=== PATIENT | female | born 1950 | race Caucasian/White ===

== ENCOUNTER 2019-10-08 13:58 | Emergency (ER) | payer MEDICARE, OTHER, SELFPAY ==
[2019-10-08 14:32] VITALS: BP 156/112; PULSE 71; RESP 18; TEMP 36.4; O2SAT 100; BMI 34.0
== END 2019-10-08 18:06 | disposition home or self-care (01) ==
LOC: ER 14:12
PROVIDERS: Emergency Provider Emergency Medicine; Family Provider Nurse Practitioner
DX: Z53.21 Procedure and treatment not carried out due to patient leaving prior to being seen by health care provider (principal)
CPT/HCPCS: 99281

== ENCOUNTER 2020-08-22 13:07 | Emergency (ER) | payer MEDICARE, OTHER, SELFPAY ==
[2020-08-22] VITALS (8 sets, daily range): BP systolic 109–132; BP diastolic 58–82; PULSE 64–73; RESP 15–18; TEMP 36.9; O2SAT 96–98; BMI 26.6
--- NOTE | 2020-08-22 13:21 | XR_ITS ---
WS: [id number] Exam: XR chest 1V portable [id number] Date/Time of Exam: 08/22/2020 1:37 PM Reason For Exam: chest pain Comparison 04/24/2014. The lungs are clear. Normal cardiomediastinal structures for technique. Bony elements are intact. No pleural effusions. XR/XR chest 1V portable [id number] IMPRESSION: 1. No acute cardiopulmonary finding.
--- NOTE | 2020-08-22 13:22 | ECG_ITS ---
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 Measurements Intervals [place] Rate: 66 P: 54 VT: 156 QRS: 30 QRSD: 84 T: 30 QT: 456 QTc: 481 Interpretive Statements SINUS RHYTHM No previous ECG available for comparison Electronically Signed On 08-22-2020 18:26:34 RETREAD TECHNICIAN by Chinyere Hughes M.D. [id number] f
--- NOTE | 2020-08-22 13:26 | ED_ITS ---
HPI - Chest Pain General: Chief Complaint: Chest Pain Stated Complaint: CHEST PAIN, SOB Time Seen by Provider: 08/22/20 13:13 Source: patient, family (Daughter) and EMS Mode of arrival: EMS Limitations: no limitations History of Present Illness: HPI narrative: Patient has been complaining of dizziness and lightheadedness for about 2 weeks. She says sometimes the room spins and sometimes she just feels lightheaded. He got much worse in the last 2 days and was associated with chest pain at the time. Dizziness is worse on rising and standing. Chest pain is left-sided and radiates to her neck and jaw on the left. No nausea or vomiting. No diaphoresis. Her daughter thinks that she may be too aggressive with dieting as the patient has been attempting to lose weight. She has gone from 215 pounds to 165 pounds in about a year. MD complaint: chest pain and chest heaviness Pertinent past history: coronary artery disease Onset (ago): day(s) (2) Timing of current episode: episodic Prior episodes: Yes Onset: during rest Pain location: left chest Pain radiation: neck and jaw/teeth Severity: moderate Quality: heaviness Relieving factors: nothing Exacerbating factors: nothing Associated symptoms: Deny abdominal pain, diaphoresis, dyspnea, fever(s), leg edema, nausea, palpitations, sense of impending doom, syncope or vomiting Treatment prior to arrival: aspirin and nitroglycerin Review of Systems General: Reports: 10 or more systems reviewed and unremarkable except in HPI and below Const: Denies: fever(s) or diaphoresis Eyes: Denies: change in vision or blurry vision ENMT: Denies: throat pain, enlarged tonsils, odynophagia, hoarseness, mouth pain or swelling of lips/tongue Card: Denies: palpitations or syncope Resp: Denies: dyspnea GI: Denies: abdominal pain, nausea or vomiting : Denies: flank pain, difficulty voiding, dysuria, urinary frequency, urinary urgency or urinary hesitancy Musc: Denies: neck pain, back pain or extremity swelling Skin/Breast: Denies: rash, pruritus or erythema Neuro: Denies: headache(s), numbness in extremities or weakness in extremities Endo: Denies: polyuria, polydipsia or tired all the time PFS ED PFSH: Medical History (Reviewed 08/22/20 @ 13:32 by Sharan Ortiz [place] [facility] [place] Anterolisthesis Cervical stenosis of spine Chest heaviness Essential hypertension GERD (gastroesophageal reflux disease) H/O deep venous thrombosis H/O pneumothorax History of pulmonary embolism Memory change Tremor Vertebral artery disease Surgical History (Reviewed 08/22/20 @ 13:32 by Sharan Ortiz MD, [facility] [place] S/P hysterectomy Social History (Reviewed 08/22/20 @ 13:32 by Sharan Ortiz MD, [facility] [place] Smoking and tobacco status: former smoker Physical Exam Const: COMMON NORMALS: no acute distress, average body habitus, patient oriented x3, no limitations, healthy appearing, alert and well nourished HENMT: COMMON NORMALS: normocephalic, atraumatic and moist oral mucous membranes HEAD & SCALP: normocephalic and atraumatic Eye: COMMON NORMALS: Equal, round and reactive pupils present, EOMs intact bilaterally, conjunctivae normal and no scleral icterus CONJUNCTIVA: Yes conjunctivae normal PUPIL: Yes Equal, round and reactive pupils present Neck/C-Spine: COMMON NORMALS: no meningeal signs and no JVD Resp: COMMON NORMALS: normal respiratory effort, No retractions, No use of accessory muscles, clear to auscultation bilaterally and percussion normal AUSCULTATION: clear to auscultation bilaterally PERCUSSION: percussion normal Cardio: COMMON NORMALS: no JVD, regular rate, regular rhythm, S1 normal heart sound present, S2 normal heart sound present, No gallops present (Cardio), No clicks present (Cardio), No murmurs present (Cardio), No rub (Cardio) and Peripheral pulses 2+ throughout RATE: regular rate RHYTHM: regular rhythm HEART SOUNDS: S1 normal heart sound present and S2 normal heart sound present PERIPHERAL PULSES: Peripheral pulses 2+ throughout GI: COMMON NORMALS: Normal to inspection, nondistended, normoactive bowel sounds present, Soft to palpation, non-tender, No hepatosplenomegaly present, no masses and no bruits PALPATION: Yes Soft to palpation and Yes No hepatosplenomegaly present Extremity: COMMON NORMALS: normal to inspection, full ROM, capillary refill normal, no calf tenderness and no pedal edema Neuro: COMMON NORMALS: patient oriented x3 SENSORIUM/ORIENTATION: Yes alert MENINGEAL SIGNS: Yes no meningeal signs Skin: COMMON NORMALS: no rashes or lesions noted, no wounds, turgor normal, no jaundice, no petechiae and no mottling GENERAL SKIN EXAM: no rashes or lesions noted and turgor normal Course Reevaluation(s): Reevaluation #1: Patient's pain is much improved following the morphine injection. Discussed her lab findings so far, high-sensitivity troponin is mildly elevated, with for the 2-hour delta. Potassium is 2.9 and will replace potassium orally. She has ketones in her urine which could be from dehydration or starvation. Her daughter had complained that the patient is not eating much in an attempt to lose weight. We will wait 42-hour troponin and fluids to be done I will discuss with her after. She voiced understanding and is in agreement with the plan. Time: 15:01 Reevaluation #2: Discussed her repeat troponin. She has a flat 2-hour delta. Other labs and imaging unremarkable. Advised healthy dieting as it is possible that this may be contributing to her symptoms. She is advised to discuss with her primary care provider on ways to eat healthy. She voiced understanding and is in agreement with the plan. Time: 17:03 Vital Signs: Vital signs: Vital Signs Temperature 98.5 F 08/22/20 13:08 Pulse Rate 67 08/22/20 17:12 Respiratory Rate 18 08/22/20 17:12 Blood Pressure 114/73 08/22/20 17:12 Pulse Oximetry 97 08/22/20 17:12 MDM - Chest Pain MDM Narrative: Medical decision making narrative: 70-year-old female patient who presents with chest pain today. Evaluation in the emergency department was negative for a cardiac cause for her pain. She was noted to be hypokalemic in the emergency department and her potassium was replaced. She was discharged home to follow-up with her primary care provider. Medical Records: Attestation: I reviewed the patient's medical records. Lab Data: Attestation: I reviewed the patient's lab results. Labs: Lab Results 08/22/20 08/22/20 08/22/20 Range/Units 12:08 12:08 12:08 WBC 6.7 (4.0-10.0) 10^3/ uL RBC 3.83 L (4.1-5.3) 10^6/u L Hgb 11.6 (11.5-15.3) g/dL Hct 35.4 L (37.0-47.0) % MCV 92.4 (81-99) fL MCH 30.3 (28.0-34.0) pg MCHC 32.8 (30.0-36.0) g/dL RDW 13.2 (12.1-15.1) % Plt Count 186 (130-400) 10^3/c mm MPV 12.2 H (7.4-10.4) fL Neut % (Auto) 55.8 % Lymph % (Auto) 35.1 % Keith % (Auto) 7.4 % Eos % (Auto) 1.0 % Baso % (Auto) 0.6 % Neut # (Auto) 3.75 (1.8-7.7) 10^3/u L Lymph # (Auto) 2.4 (0.8-4.8) 10^3/u L Keith # (Auto) 0.5 (0.2-0.9) 10^3/u L Eos # (Auto) 0.1 (0.0-0.8) 10^3/u L Baso # (Auto) 0.0 (0.0-0.1) 10^3/u L Nucleated RBC % (a uto) 0 % Nucleated RBCs # 0.0 /100WBC Sodium 142 (136-145) mmol/L Potassium 2.9 L (3.5-5.1) mmol/L Chloride 103 (98-107) mmol/L Carbon Dioxide 26 (22-29) mmol/L Anion Gap 15.9 (5-19) BUN 15 (8-23) mg/dL Creatinine 0.7 (0.5-0.9) mg/dL GFR Calculation 82.7 L (90-130) mL/min Glucose 87 (65-115) mg/dL Calculated Osmolal ity 294 (285-295) mOsm/k g Calcium 8.4 L (8.5-10.5) mg/dL Total Bilirubin 1.2 (0.15-1.2) mg/dL AST 23 (0-32) U/L ALT 12 (0-33) U/L Alkaline Phosphata se 78 (35-105) IU/L Troponin T Baselin e 12 H (0-10) ng/L Troponin T 120 Min eagle Delta Troponin T NT-Pro-B Natriuret Pep 226 H (0-125) pg/mL Total Protein 6.0 L (6.6-8.7) g/dL Albumin 3.9 (3.5-5.2) g/dL Globulin 2.1 (1.3-4.6) g/dL Lipase 22 (13-60) U/L Urine Color (Yellow) Urine Appearance (CLEAR) Urine pH (5-7) Ur Specific Gravit y (1.005-1.030) Urine Protein (Negative) Urine Glucose (UA) (Normal) Urine Ketones (Negative) Urine Blood (Negative) Urine Nitrate (Negative) Urine Bilirubin (Negative) Prot Sulfosalicyli c Acd (Negative) Urine Urobilinogen (Negative) mg/dL Ur Leukocyte Sulema ase (Negative) 08/22/20 08/22/20 08/22/20 Range/Units 13:45 14:00 15:25 WBC (4.0-10.0) 10^3/ uL RBC (4.1-5.3) 10^6/u L Hgb (11.5-15.3) g/dL Hct (37.0-47.0) % MCV (81-99) fL MCH (28.0-34.0) pg MCHC (30.0-36.0) g/dL RDW (12.1-15.1) % Plt Count (130-400) 10^3/c mm MPV (7.4-10.4) fL Neut % (Auto) % Lymph % (Auto) % Keith % (Auto) % Eos % (Auto) % Baso % (Auto) % Neut # (Auto) (1.8-7.7) 10^3/u L Lymph # (Auto) (0.8-4.8) 10^3/u L Keith # (Auto) (0.2-0.9) 10^3/u L Eos # (Auto) (0.0-0.8) 10^3/u L Baso # (Auto) (0.0-0.1) 10^3/u L Nucleated RBC % (a uto) % Nucleated RBCs # /100WBC Sodium (136-145) mmol/L Potassium (3.5-5.1) mmol/L Chloride (98-107) mmol/L Carbon Dioxide (22-29) mmol/L Anion Gap (5-19) BUN (8-23) mg/dL Creatinine (0.5-0.9) mg/dL GFR Calculation (90-130) mL/min Glucose (65-115) mg/dL Calculated Osmolal ity (285-295) mOsm/k g Calcium (8.5-10.5) mg/dL Total Bilirubin (0.15-1.2) mg/dL AST (0-32) U/L ALT (0-33) U/L Alkaline Phosphata se (35-105) IU/L Troponin T Baselin e (0-10) ng/L Troponin T 120 Min eagle Cancelled 10.09 H Delta Troponin T Cancelled -1.91 L NT-Pro-B Natriuret Pep (0-125) pg/mL Total Protein (6.6-8.7) g/dL Albumin (3.5-5.2) g/dL Globulin (1.3-4.6) g/dL Lipase (13-60) U/L Urine Color Yellow (Yellow) Urine Appearance Clear (CLEAR) Urine pH 8 H (5-7) Ur Specific Gravit y 1.015 (1.005-1.030) Urine Protein Neg (Negative) Urine Glucose (UA) Norm (Normal) Urine Ketones 1+ H (Negative) Urine Blood Neg (Negative) Urine Nitrate Negative (Negative) Urine Bilirubin Neg (Negative) Prot Sulfosalicyli c Acd Negative (Negative) Urine Urobilinogen 1 H (Negative) mg/dL Ur Leukocyte Sulema ase Negative (Negative) Imaging Data^: CXR: Attestation: I personally reviewed and interpreted this imaging study as follows: Radiologist's impression: [address] [place] [address] XRay Report Signed Patient: Rosemarie De Los Santos #: [id number] : 1950Acct#:[id number] Age/Sex: 70 / FADM Date: 08/22/20 Loc: ERRoom/Bed: Attending Dr: Ordering Provider/Ordering MD: Sharan Ortiz MD, [facility] [place] Date of Service: 08/22/20 Procedure(s): XR chest 1V portable [id number] Accession Number(s): [id number] Report Number: [id number] WS: [id number] Exam: XR chest 1V portable [id number] Date/Time of Exam: 08/22/2020 1:37 PM Reason For Exam: chest pain Comparison 04/24/2014. The lungs are clear. Normal cardiomediastinal structures for technique. Bony elements are intact. No pleural effusions. XR/XR chest 1V portable [id number] IMPRESSION: 1. No acute cardiopulmonary finding. Dictated By:Saul Arzola DO Signed By:Richy Clements Date/Time:08/22/20 1356 DD/ 1352 EKG Data^: EKG 1: Attestation: I personally reviewed and interpreted this EKG as follows: EKG interpretation date: 08/22/20 EKG interpretation time: 13:38 Prior EKG tracings: not available for review Interpretation: Normal sinus rhythm. Heart rate [address] changes. Normal axis. Normal EKG EKG 2: EKG interpretation date: 08/22/20 EKG interpretation time: 15:28 Prior EKG tracings: available for review Interpretation: Normal sinus rhythm. Heart rate [address] changes. Discharge Plan Discharge Patient Disposition: Home Clinical Impression: Acute hypokalemia Chest pain Qualifiers: Chest pain type: unspecified Qualified Code(s): R07.9 - Chest pain, unspecified Condition: Stable Prescriptions: New potassium chloride 20 mEq/15 mL liquid 20 meq PO DAILY 3 Days Qty: 45 RF: 0 Continued atorvastatin [Lipitor] 40 mg tablet 40 mg PO DAILY Qty: 90 RF: 0 cyanocobalamin (vitamin B-12) 1,000 mcg capsule 1,000 mcg PO DAILY Qty: 90 RF: 0 ibuprofen 600 mg tablet 600 mg PO DAILY PRN (Reason: pain) Qty: 90 RF: 0 paroxetine HCl [Paxil] 10 mg tablet 10 mg PO DAILY Qty: 90 RF: 0 omeprazole 40 mg capsule,delayed release(DR/EC) 40 mg PO DAILY Qty: 90 RF: 0 tolterodine [Detrol LA] 4 mg capsule,extended release 24hr 4 mg PO DAILY Qty: 90 RF: 0 lisinopril 5 mg tablet 5 mg PO DAILY Qty: 90 RF: 0 Discharge Orders: Discharge Order (Routine); Ordered 08/22/20 Ordered By: Sharan Ortiz Referrals: RUBÉN Middleton, PERSONAL DRIVER [Primary Care Provider] - 1-3 days Discharge Diet: As Directed Discharge Activity: Increase activity as tolerated Patient Instructions: Chest Pain (ED), Hypokalemia (ED) Activity Restrictions/Additional Instructions: Return for any new or worsening symptoms. Follow-up with your primary care provider within 3 days. Take the medication as prescribed. Discussed with your primary care provider about healthy dieting. Coding Level of Care Code ED Mushroom Press Operator for Chg Fwd Exam Comprehensive
[2020-08-22 13:34] LABS: Basophils % 0.6 %; Eosinophils # 0.1 10^3/uL (0.0-0.8); Hematocrit 35.4 % (37.0-47.0); Hemoglobin 11.6 g/dL (11.5-15.3); Lymphocytes # 2.4 10^3/uL (0.8-4.8); Lymphocytes % 35.1 %; Mean Corpuscular HGB Conc 32.8 g/dL (30.0-36.0); Mean Corpuscular Hemoglobin 30.3 pg (28.0-34.0); Mean Corpuscular Volume 92.4 fL (81-99); Mean Platelet Volume 12.2 fL (7.4-10.4); Monocytes # 0.5 10^3/uL (0.2-0.9); Monocytes % 7.4 %; Neutrophils # 3.75 10^3/uL (1.8-7.7); Neutrophils % 55.8 %; Nucleated Red Blood Cells % 0 %; Platelet Count 186 10^3/cmm (130-400); Red Blood Count 3.83 10^6/uL (4.1-5.3); Red Cell Distribution Width 13.2 % (12.1-15.1); White Blood Count 6.7 10^3/uL (4.0-10.0)
[2020-08-22 14:18] LABS: Add Urine Microscopic? NO
[2020-08-22 14:20] LABS: Troponin(5th) Baseline 12 ng/L (0-10)
[2020-08-22] MEDS: ondansetron 2 mg/ML SDV 2 mL 4 MG IVP (14:32)
[2020-08-22 14:33] LABS: Alanine Aminotransferase 12 U/L (0-33); Albumin Level 3.9 g/dL (3.5-5.2); Alkaline Phosphatase 78 IU/L (35-105); Anion Gap 15.9 (5-19); Aspartate Amino Transferase 23 U/L (0-32); Blood Urea Nitrogen 15 mg/dL (8-23); Calcium 8.4 mg/dL (8.5-10.5); Carbon Dioxide 26 mmol/L (22-29); Chloride 103 mmol/L (98-107); Creatinine Clr Calc Pharmacy 67.6784; Globulin 2.1 g/dL (1.3-4.6); Glomerular Filtration Rate 82.7 mL/min (90-130); Glucose 87 mg/dL (65-115); Lipase 22 U/L (13-60); NT Pro B Type Natriuretic Pept 226 pg/mL (0-125); Osmolality Calculated 294 mOsm/kg (285-295); Sodium 142 mmol/L (136-145); Total Bilirubin 1.2 mg/dL (0.15-1.2)
[2020-08-22] MEDS: morphine 4 mg/mL SDV 1 mL IVP (14:35)
[2020-08-22 14:38] LABS: Potassium 2.9 mmol/L (3.5-5.1)
[2020-08-22 14:40] LABS: Bilirubin Urine Neg (Negative); Blood Urine Neg (Negative); Glucose Urine UA Norm (Normal); Nitrate Urine Negative (Negative); Protein Urine Neg (Negative); Specific Gravity, Urine 1.015 (1.005-1.030); Sulfosalicylic Acid Urine Negative (Negative); Urine Appearance Clear (CLEAR); Urine Color Yellow (Yellow); pH Urine 8 (5-7)
[2020-08-22 14:41] LABS: Ketones Urine 1+ (Negative); Leukocyte Esterase Urine Negative (Negative); Urobilinogen Urine 1 mg/dL (Negative)
[2020-08-22] MEDS: potassium chloride oral liq 20 mEq/15 mL UDC 40 MEQ PO (15:20)
[2020-08-22] MEDS: sodium chloride 0.9% 1,000 ML 999 ML IV (15:21)
--- NOTE | 2020-08-22 15:22 | ECG_ITS ---
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 Measurements Intervals [place] Rate: 67 P: 49 IN: 141 QRS: 27 QRSD: 88 T: 30 QT: 446 QTc: 472 Interpretive Statements SINUS RHYTHM NONSPECIFIC ST ELEVATION [0.05+ mV ST ELEVATION] Compared to ECG 08/22/2020 13:38:02 ST (T wave) deviation now present Electronically Signed On 08-22-2020 18:30:53 STAMP COLLECTOR by Chinyere Hughes M.D. [id number] f
[2020-08-22 16:01] LABS: Troponin 5 2HR 10.09 ng/L (0-10)
[2020-08-22 16:11] LABS: Troponin 5 2HR Delta -1.91 ABS# (0-10)
== END 2020-08-22 17:29 | disposition home or self-care (01) ==
PROVIDERS: Emergency Provider Family Medicine; PCP Nurse Practitioner Family
DX: E87.6 Hypokalemia (principal); R07.9 Chest pain, unspecified; Z87.891 Personal history of nicotine dependence; I10 Essential (primary) hypertension; Z86.718 Personal history of other venous thrombosis and embolism; Z86.711 Personal history of pulmonary embolism; Z79.1 Long term (current) use of non-steroidal anti-inflammatories (NSAID)
CPT/HCPCS: 12345; 36415; 71045; 80053; 81003; 83690; 83880; 84484; 85025; 93005; 96361; 96374; 96375; 99282; 99284; J2270; J2405; J7030

== ENCOUNTER → 2020-08-26 10:06 | Outpatient (BNVA) | payer MEDICARE, OTHER, SELFPAY | PROVIDERS: PCP Nurse Practitioner Family; Visit Provider Nurse Practitioner Family | DX: E55.9 Vitamin D deficiency, unspecified (principal); D51.8 Other vitamin B12 deficiency anemias; E87.6 Hypokalemia; I10 Essential (primary) hypertension; E78.2 Mixed hyperlipidemia; Z79.899 Other long term (current) drug therapy; F41.9 Anxiety disorder, unspecified; F32.9 Major depressive disorder, single episode, unspecified; E46 Unspecified protein-calorie malnutrition | CPT/HCPCS: 36415; 80053; 80061; 82306; 82607; 82746; 83036; 83550; 84443 ==

== ENCOUNTER → 2021-01-25 11:44 | Outpatient (BNVA) | payer MEDICARE, OTHER, SELFPAY | PROVIDERS: PCP Nurse Practitioner Family; Visit Provider Nurse Practitioner Family | DX: E78.2 Mixed hyperlipidemia (principal); D64.9 Anemia, unspecified; I10 Essential (primary) hypertension; Z79.899 Other long term (current) drug therapy; E55.9 Vitamin D deficiency, unspecified; D51.8 Other vitamin B12 deficiency anemias; R07.89 Other chest pain; N39.3 Stress incontinence (female) (male); F41.9 Anxiety disorder, unspecified; F32.9 Major depressive disorder, single episode, unspecified | CPT/HCPCS: 80053; 80061; 81003; 82306; 82607; 82728; 83036; 83550; 84443; 85025; 87077; 87086; 87184 ==

== ENCOUNTER 2021-03-01 07:41 | Outpatient (CLI) | payer MEDICARE, OTHER, SELFPAY ==
--- NOTE | 2021-03-01 07:52 | USCV_ITS ---
Rosemarie De Los Santos Age: 70 Gender: F : 1950 Exam Date: 03/01/2021 08:14 Ordering Phys: RUBÉN Middleton APRNP Technologist: GABBY [place] [facility] [place]: ESSENTIAL HTN BP: / HR: 61 Rhythm: Sinus Technical Quality: Adequate MEASUREMENTS (Male / Female) Normal Values 2D ECHO LV Diastolic Diameter PLAX 4.2 cm 4.2 - 5.9 / 3.9 - 5.3 cm LV Systolic Diameter PLAX 2.8 cm LV Chamber Size 3.3 cm IVS Diastolic Thickness 1.4 cm 0.6 - 1.0 / 0.6 - 0.9 cm IVS Systolic Thickness 1.0 cm LVPW Diastolic Thickness 1.7 cm 0.6 - 1.0 / 0.6 - 0.9 cm LVPW Systolic Thickness 2.7 cm RV Chamber Size 3.3 cm LVOT Diameter 2.0 cm LV Ejection Fraction 2D Teich 62.3 % LV Ejection Fraction MOD 2C 55.2 % LV Ejection Fraction 2C AL 54.7 % LA Diameter 3.9 cm LA Width 3.3 cm LA Height 4.7 cm RA Width 3.1 cm RA Height 3.7 cm Aorta at Sinotubular Diameter 2.4 cm M-MODE LV Diastolic Diameter MM 3.9 cm 4.2 - 5.9 / 3.9 - 5.3 cm LV Systolic Diameter MM 2.6 cm LV Ejection Fraction MM Teich 62.0 % IVS Diastolic Thickness MM 0.9 cm 0.6 - 1.0 / 0.6 - 0.9 cm IVS Systolic Thickness MM 0.9 cm LVPW Diastolic Thickness MM 0.9 cm 0.6 - 1.0 / 0.6 - 0.9 cm LVPW Systolic Thickness MM 1.0 cm Aortic Annulus Diameter 3.3 cm LA Ao Ratio MM 1.2 MV E Point Septal Separation 0.3 cm DOPPLER AV Peak Velocity 116.0 cm/s LVOT Peak Velocity 103.7 cm/s AV Area Cont Eq vti 3.0 cm squared AV Area Cont Eq pk 2.8 cm squared MV Area PHT 3.2 cm squared Mitral E to A Ratio 1.0 MV E' Velocity 52.0 cm/s Mitral E to MV E' Ratio 8.7 Mitral E to LV E' Lateral Ratio 9.0 Mitral E to LV E' Septal Ratio 8.4 TR Peak Velocity 253.0 cm/s TR Peak Gradient 25.6 mmHg TV Peak E Velocity 62.0 cm/s Right Atrial Pressure 3.0 mmHg Pulmonary Artery Systolic Pressu 28.6 mmHg PV Peak Velocity 72.0 cm/s RV Acceleration Time 0.2 s RV Ejection Time 0.4 s RV AcT/ET 0.5 FINDINGS Left Ventricle Normal left ventricular size and systolic function with no regional wall motion abnormalities. Left ventricular ejection fraction is estimated at 60 %. Normal diastolic function. Right Ventricle Normal right ventricular size and systolic function. Right ventricular systolic pressure 30 mmHg. Right Atrium Normal right atrial size. Right atrial pressure estimated at 3 mmHg. Left Atrium Normal left atrial size. Mitral Valve Mild mitral annular calcification. No mitral valve stenosis. Mild mitral valve regurgitation. Aortic Valve Structurally normal trileaflet aortic valve. No aortic valve stenosis. No aortic valve regurgitation. Tricuspid Valve Structurally normal tricuspid valve. No tricuspid valve stenosis. Trace tricuspid valve regurgitation. Pulmonic Valve No pulmonary valve stenosis. Trace pulmonary valve regurgitation. Pericardium No pericardial effusion. Aorta Normal size aortic root and proximal ascending aorta. Normal- sized inferior vena cava with normal respiratory variation. CONCLUSIONS 1. Normal left ventricular size and systolic function with no regional wall motion abnormalities. Left ventricular ejection fraction is estimated at 60 %. Normal diastolic function. 2. Normal right ventricular size and systolic function. 3. Pulmonary artery pressure estimated at 30 mmHg. 4. Mild mitral valve regurgitation. 5. No pericardial effusion. 6. No prior similar studies to compare. Margie Triplett MD (Electronically Signed) Final Date: 04 Mar 2021 19:02 S
== END 2021-03-01 07:42 | disposition home or self-care (01) ==
LOC: RAD 07:50
PROVIDERS: PCP Nurse Practitioner Family; Visit Provider Nurse Practitioner Family
DX: I10 Essential (primary) hypertension (principal); R07.89 Other chest pain; I34.0 Nonrheumatic mitral (valve) insufficiency
CPT/HCPCS: 93306

== ENCOUNTER 2021-03-09 06:49 | Outpatient (CLI) | payer MEDICARE, OTHER, SELFPAY ==
[2021-03-09 07:22] VITALS: BMI 29.2
--- NOTE | 2021-03-09 07:22 | ECG_ITS ---
[facility] Test Date: 2021-03-09 Pat Name: Rosemarie De Los Santos Department: Room: Gender: Female Correspondence Transcriber: : 1950 Requested By: Margie Triplett Order Number: [id number] Marli MD: Margie Triplett M.D. Interpretive Statements NAME OF STUDY: LEXISCAN SESTAMIBI STRESS TEST INDICATION: Chest Pain PROCEDURE: At the baseline, the blood pressure was 141/71 mmHg, oxygen saturation 97% with a heart rate of 67 bpm. The electrocardiogram showed normal sinus rhythm, normal axis with nonspecific T wave changes. The Lexiscan was infused over a period of 20 seconds. A total of 0.4 milligrams of Lexiscan was infused. The stress phase was continued for a total of 5 minutes. Heart rate at the end of the stress phase was 80 bpm, oxygen saturation 98% with a blood pressure of 152/67 mmHg. The EKG at the peak infusion revealed sinus rhythm with no significant ST-T wave changes. Study was terminated due to protocol completion. Sestamibi was injected 20 seconds after the Lexiscan infusion. Blood pressure at the end of the recovery phase was 141/73 mmHg, oxygen saturation 96% with a heart rate of 89 beats per minute. CONCLUSION: 1. No significant EKG changes with the LexiScan infusion. 2. No LexiScan induced chest pain or cardiac arrhythmia. 3. Normal blood pressure and heart rate response. 4. Sestamibi/sestamibi perfusion scan pending; see separate report. Electronically Signed On 03-13-2021 18:08:15 CDT by Margie Triplett M.D. [id number]
--- NOTE | 2021-03-09 07:23 | NMCV_ITS ---
NM river perf SPECT r/s* [id number] Rosemarie De Los Santos Age: 70 Gender: F : 1950 Exam Date: 03/09/2021 08:24 Ordering Phys: Margie Triplett MD ([email or web address]) Technologist: ZARINA Wood Exam Location: [facility] Indications: CHEST PAIN STRESS TEST Please see separate stress test report in [facility] for full findings IMAGE PROTOCOL Rest/Stress 1 Lexiscan Day Radiopharmaceutical Dose (mCi) Administration Site Administered by Rest: Tc-99m 10.8 IV ZARINA Casarez Sestamibi Stress:Tc-99m 32.8 IV ZARINA Wood Sestamimik Rest: 09-Mar-2021 60 Discovery 630 Stress: 09-Mar-2021 30 Discovery 630 0.4mg Lexiscan. Images obtained in supine and prone position. SPECT RESULTS Technical Quality: Excellent Raw Data Analysis: Normal Image Corrections: No attenuation or motion correction applied Summed Stress Score: 0 Summed Rest Score: 0 Summed Difference Score: 0 PERFUSION FINDINGS SPECT images demonstrate homogeneous tracer distribution throughout the myocardium. FUNCTIONAL RESULTS (calculated via Gated SPECT) Stress Image LV EF (%): 85 Stress EDV (mL):67 TID: 0.85 Stress ESV (mL):10 FUNCTIONAL FINDINGS: The left ventricle is normal in size. Transient Ischemia Dilatation of 0.85. There is normal left ventricular systolic function. The left ventricular ejection fraction is normal with a value of 85%. There is normal left ventricular wall thickening with no regional wall motion abnormality. Normal end-diastolic and end-systolic volumes. IMPRESSIONS 1. Myocardial perfusion imaging is normal. 2. Overall left ventricular systolic function is normal without regional wall motion abnormalities. 3. The left ventricular ejection fraction is normal with a value of 85%. 4. No EKG changes with Lexiscan infusion. Please refer to separate report for details. 5. No prior similar studies to compare. Margie Triplett MD (Electronically Signed) Final Date: 13 March 2021 18:11 S
[2021-03-09] MEDS: regadenoson 0.4 Mg/5 ml Syringe IVP (09:11)
[2021-03-09 09:12] VITALS: BP 141/73; PULSE 97
== END 2021-03-09 06:50 | disposition home or self-care (01) ==
LOC: RAD 06:51 → CDL 07:21
PROVIDERS: PCP Nurse Practitioner Family; Visit Provider Internal Medicine Cardiovascular Disease
DX: R07.9 Chest pain, unspecified (principal)
CPT/HCPCS: 78452; 93017; A9500; J2785

== ENCOUNTER → 2021-09-20 11:56 | Outpatient (BNVA) | payer MEDICARE, OTHER, SELFPAY | PROVIDERS: PCP Nurse Practitioner Family; Visit Provider Nurse Practitioner Family | DX: D64.9 Anemia, unspecified (principal); N39.0 Urinary tract infection, site not specified | CPT/HCPCS: 80053; 81003; 82607; 82728; 83550; 85025; 87077; 87086; 87184 ==

== ENCOUNTER → 2022-02-12 08:59 | Outpatient (BNVA) | payer MEDICARE, OTHER, SELFPAY | PROVIDERS: PCP Nurse Practitioner Family; Visit Provider Nurse Practitioner | DX: I10 Essential (primary) hypertension (principal); E55.9 Vitamin D deficiency, unspecified | CPT/HCPCS: 80053; 82306; 85025 ==

== ENCOUNTER 2022-03-15 11:57 | Emergency (ER) | payer MEDICARE, OTHER, SELFPAY ==
[2022-03-15 12:22] VITALS: BP 133/78; PULSE 67; RESP 16; TEMP 36.9; O2SAT 100
--- NOTE | 2022-03-15 12:34 | ECG_ITS ---
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 Measurements Intervals [place] Rate: 60 P: 57 OH: 142 QRS: 27 QRSD: 81 T: 38 QT: 415 QTc: 418 Interpretive Statements SINUS RHYTHM Compared to ECG 08/22/2020 15:28:09 ST (T wave) deviation no longer present Electronically Signed On 03-15-2022 15:21:18 CDT by Jay Jay Dacosta M.D. [id number]
--- NOTE | 2022-03-15 12:34 | XR_ITS ---
WS: [id number] Exam: XR chest 1V portable [id number] Date/Time of Exam: 03/15/2022 12:36 PM Reason For Exam: light-headedness Comparison 08/22/2020 Findings: The lungs are clear and fully expanded. Costophrenic angles are sharp. No infiltrates. Bronchovascula r relief appears normal. Cardiac silhouette is unremarkable. Bony elements are intact. XR/XR chest 1V portable [id number] IMPRESSION: Unremarkable chest radiograph.
--- NOTE | 2022-03-15 12:36 | ED_ITS ---
HPI - General Adult General: Chief complaint: Weakness Stated complaint: Dehydration, needs labs Time Seen by Provider: 03/15/22 12:28 History of Present Illness: Patient is a 71-year-old female with a history of prior hypokalemia, UTI, hypertension, malnutrition who presents to the emergency room for evaluation of decreased appetite, generalized weakness, diarrhea, and nausea x1 week. Patient tells me that her symptom has not improved and she is has hardly been able to hold anything down. Patient tells me that she went to see her primary care doctor was told to come to the emergency room. Patient denies any recent fever, cough, runny nose sore throat, body aches, melena/he matochezia, or complaints. Patient has no focal abdominal pain. Of note, patient's son was sick last week with cold-like symptoms. Patient did not have any symptoms last week. She denies any any recent travels or any recent antibiotic use. Onset:1 week ago Duration:1 week Location:home Severity:moderate Associated symptoms: Reports malaise and nausea; Deny chest pain, dyspnea, rash, palpitations or vomiting Review of Systems Const: Reports: fatigue, malaise and other (+generalized weakness); Denies: fever(s) or chills Eyes: Denies: change in vision ENMT: Denies: mouth pain Card: Denies: chest pain or palpitations Resp: Denies: dyspnea or non-productive cough GI: Reports: nausea and diarrhea; Denies: abdominal pain or vomiting : Denies: dysuria Musc: Denies: extremity pain Skin/Breast: Denies: rash or new lesions Neuro: Denies: weakness in extremities Psych: Reports: other (Normal mood) Herve/Lymph: Denies: easy bruising PFS ED PFSH: Medical History Acute UTI Anemia Anterolisthesis Anxiety Anxiety and depression Cervical stenosis of spine Chest heaviness Dog bite of upper extremity Essential hypertension GERD (gastroesophageal reflux disease) H/O deep venous thrombosis H/O pneumothorax History of pulmonary embolism Influenza vaccine needed Malnutrition Memory change Mixed hyperlipidemia Tremor Vertebral artery disease Vitamin B12 deficiency (dietary) anemia Vitamin D deficiency Surgical History S/P hysterectomy Family History Brother CAD (coronary artery disease) FH: CABG (coronary artery bypass surgery) Father Stroke Mother Alzheimers disease Other Diabetes Social History Smoking and tobacco status: former smoker Alcohol intake: never Physical Exam Const: COMMON NORMALS: alert HENMT: COMMON NORMALS: atraumatic HEAD & SCALP: atraumatic MOUTH: moist mucous membranes not abnormal Eye: COMMON NORMALS: EOMs intact bilaterally and conjunctivae normal CON JUNCTIVA: Yes conjunctivae normal Neck/C-Spine: COMMON NORMALS: full ROM and supple Resp: COMMON NORMALS: normal respiratory effort and clear to auscultation bilaterally AUSCULTATION: clear to auscultation bilaterally Cardio: COMMON NORMALS: regular rate RATE: regular rate GI: COMMON NORMALS: Soft to palpation and non-tender PALPATION: Yes Soft to palpation Extremity: COMMON NORMALS: full ROM Neuro: SENSORIUM/ORIENTATION: Yes alert MOTOR EXAM: No Abnormal motor strength present and Other motor observations present (no focal motor deficits) Psych: COMMON NORMALS: speech normal SPEECH: Yes normal speech MOOD & AFFECT: Yes euthymic mood Course Vital Signs: Vital signs: Vital Signs Temperature 98.4 F 03/15/22 12:22 Pulse Rate 62 03/15/22 17:08 Respiratory Rate 21 H 03/15/22 12:56 Blood Pressure 141/74 03/15/22 17:08 Pulse Oximetry 98 03/15/22 17:08 [facility] - General Adult Medical Decision Making 71-year-old female with a history of prior hypokalemia, UTI, hypertension, malnutrition who presents to the emergency room for evaluation of decreased appetite, generalized weakness, diarrhea, and nausea x1 week. On physical exam, patient appears to be dry. Rest of exam within normal limit. Patient received 1 L fluid, is now able to tolerate p.o. without difficulty. Patient's work-up showed white count 6.4. Rest of lab within normal limit. UA is consistent with UTI. While patient was in the emergency room, she has been able to tolerate p.o. without difficulty. Patient reports feeling better after liter fluids. I have offered patient admission however at this time, patient would like to go home with close follow-up with PCP. Rx cephalexin BID for UTI, probiotics while on ABX, tylenol PRN abd pain, maalo x/pepcid PRN dyspepsia, and zofran PRN nausea/vomiting Disposition: Discharge. Patient counseled regarding diagnostic impression, treatment plan. Patient given ED strict return precautions to return for continuation, worsening, or development of new symptoms. Instructed to f/u w/ PCP regarding symptoms today. Patient verbalized understanding. Lab Data : 03/15/22 13:30 03/15/22 13:30 Radiology Impressions Chest X-Ray 03/15/22 12:34 IMPRESSION: Unremarkable chest radiograph. Laboratory Results WBC 6.4 10^3/uL (4.0-10.0) 03/15/22 13:30 RBC 4.35 10^6/uL (4.1-5.3) 03/15/22 13:30 Hgb 13.5 g/dL (11.5-15.3) 03/15/22 13:30 Hct 40.6 % (37.0-47.0) 03/15/22 13:30 MCV 93.3 fl (81-99) 03/15/22 13:30 MCH 31.0 pg (28.0-34.0) 03/15/22 13:30 MCHC 33.3 g/dL (30.0-36.0) 03/15/22 13:30 RDW 12.1 % (12.1-15.1) 03/15/22 13:30 Plt Count 175 10^3/cmm (130-400) 03/15/22 13:30 MPV 11.7 fL (7.4-10.4) H 03/15/22 13:30 Neut % (Auto) 55.8 % 03/15/22 13:30 Lymph % (Auto) 35.8 % 03/15/22 13:30 Garden % (Auto) 7.1 % 03/15/22 13:30 Eos % (Auto) 0.5 % 03/15/22 13:30 Baso % (Auto) 0.6 % 03/15/22 13:30 Neut # (Auto) 3.56 10^3/uL (1.8-7.7) 03/15/22 13:30 Lymph # (Auto) 2.3 10^3/uL (0.8-4.8) 03/15/22 13:30 Garden # (Auto) 0.5 10^3/uL (0.2-0.9) 03/15/22 13:30 Eos # (Auto) 0.0 10^3/uL (0.0-0.8) 03/15/22 13:30 Baso # (Auto) 0.0 10^3/uL (0.0-0.1) 03/15/22 13:30 Nucleated RBC % (auto) 0 % 03/15/22 13:30 Nucleated RBCs # 0.0 /100WBC 03/15/22 13:30 Sodium 136 mmol/L (136-145) 03/15/22 13:30 Potassium 3.6 mmol/L (3.5-5.1) 03/15/22 13:30 Chloride 102 mmol/L (98-107) 03/15/22 13:30 Carbon Dioxide 19 mmol/L (22-29) L 03/15/22 13:30 Anion Gap 18.6 (5-19) 03/15/22 13:30 BUN 28 mg/dL (8-23) H 03/15/22 13:30 Creatinine 0.9 mg/dL (0.5-0.9) 03/15/22 13:30 GFR Calculation Not Reportable 03/15/22 13:30 Glucose 90 mg/dL (65-115) 03/15/22 13:30 Calculated Osmolality 287 mOsm/kg (285-295) 03/15/22 13:30 Calcium 9.1 mg/dL (8.5-10.5) 03/15/22 13:30 Magnesium 2.3 mg/dL (1.7-2.3) 03/15/22 13:30 Total Bilirubin 1.0 mg/dL (0.15-1.2) 03/15/22 13:30 AST 17 U/L (0-32) 03/15/22 13:30 ALT 11 U/L (0-33) 03/15/22 13:30 Alkaline Phosphatase 78 IU/L (35-105) 03/15/22 13:30 Troponin T Baseline 7 ng/L (0-10) 03/15/22 13:30 Troponin T 120 Minute 6.00 ng/L (0-10) 03/15/22 15:32 Delta Troponin T -1.00 ABS# (0-10) L 03/15/22 15:32 Total Protein 7.2 g/dL (6.6-8.7) 03/15/22 13:30 Albumin 4.0 g/dL (3.5-5.2) 03/15/22 13:30 Globulin 3.2 g/dL (1.3-4.6) 03/15/22 13:30 Lipase 32 U/L (13-60) 03/15/22 13:30 Urine Color Roma (Yellow) 03/15/22 14:25 Urine Appearance Sl cloudy (CLEAR) A 03/15/22 14:25 Urine pH 5 (5-7) 03/15/22 14:25 Ur Specific Swain 1.025 (1.005-1.030) 03/15/22 14:25 Urine Protein Neg (Negative) 03/15/22 14:25 Urine Glucose (UA) Norm (Normal) 03/15/22 14:25 Urine Ketones 1+ (Negative) H 03/15/22 14:25 Urine Blood 2+ (Negative) H 03/15/22 14:25 Urine Nitrate Positive (Negative) H 03/15/22 14:25 Urine Bilirubin 1+ (Negative) H 03/15/22 14:25 Urine Urobilinogen Norm mg/dL (Negative) 03/15/22 14:25 Ur Leukocyte Esterase 2+ (Negative) H 03/15/22 14:25 Urine RBC 0-4 /hpf (0-2) H 03/15/22 14:25 Urine WBC 25-40 /hpf (0-5) H 03/15/22 14:25 Ur Squamous Epith Cells 0-4 /hpf (0-5) H 03/15/22 14:25 Amorphous Sediment Not Reportable 03/15/22 14:25 Urine Bacteria 3+ /hpf (NONE) H 03/15/22 14:25 Imaging Data Other Imaging: Radiologist's impression: [address] [address] XRay Report Signed Patient: Rosemarie De Los Santos Unit #: [id number] : 1950 Age/Sex: 71 / F ADM Date: 03/15/22 Loc: ER Room/Bed: Attending Dr: Ordering Provider/Ordering MD: Holly Mckeon MD Date of Service: 03/15/22 Procedure(s): XR chest 1V portable [id number] Accession Number(s): [id number] Report Number: [id number] WS: [id number] Exam: XR chest 1V portable [id number] Date/Time of Exam: 03/15/2022 12:36 PM Reason For Exam: light-headedness Comparison 08/22/2020 Findings: The lungs are clear and fully expanded. Costophrenic angles are sharp. No infiltrates. Bronchovascular relief appears normal. Cardiac silhouette is unremarkable. Bony elements are intact. ? XR/XR chest 1V portable [id number] IMPRESSION: Unremarkable chest radiograph. ? ? Dictated By: Saul Arzola DO Signed By: Saul Arzola DO Signed Date/Time: 03/15/22 1250 DD/ 1249 Discharge Plan Discharge Patient Disposition: Home Clinical Impression: Generalized weakness, Cough, Fatigue, UTI (urinary tract infection) Condition: Stable Prescriptions: New Pepcid 20 mg tablet 20 mg PO BID PRN (Reason: abdominal pain) 10 Days Qty: 20 0RF Maalox Advanced 1,000-60 mg tablet,chewable 1 tab PO TID PRN (Reason: abdominal pain) 7 Days Qty: 21 0RF cephalexin 500 mg capsule 500 mg PO BID 7 Days Qty: 14 0RF Florastor 250 mg capsule 250 mg PO BID 10 Days Qty: 20 0RF No Action paroxetine HCl [Paxil] 20 mg tablet 20 mg PO DAILY Qty: 30 5RF vit-iron fum-folic ac 65 mg iron- 1 mg capsule 1 cap PO DAILY 30 Days Qty: 30 5RF tolterodine [Detrol LA] 4 mg capsule,extended release 24hr 4 mg PO DAILY Qty: 90 1RF omeprazole 40 mg capsule,delayed release(DR/EC) 40 mg PO DAILY Qty: 90 1RF lisinopril 5 mg tablet 5 mg PO DAILY Qty: 90 1RF potassium chloride 20 mEq/15 mL liquid 20 meq PO DAILY 30 Days Qty: 450 1RF atorvastatin [Lipitor] 40 mg tablet 40 mg PO DAILY Qty: 90 1RF cholecalciferol (vitamin D3) 1,250 mcg (50,000 unit) capsule 50,000 unit PO .weekly 30 Days Qty: 12 1RF ferrous gluconate 324 mg (37.5 mg iron) tablet 324 mg PO DAILY 30 Days Qty: 30 2RF ibuprofen 600 mg tablet 600 mg PO DAILY PRN (Reason: pain) Qty: 90 0RF Vitamin C 500 mg Tablet 500 mg PO DAILY 0RF Discharge Orders: Discharge ED (Routine); Ordered 03/15/22 Ordered By: Holly Mckeon Referrals: RUBÉN Middleton, ANALYTICAL LABORATORY TECHNICIAN [Primary Care Provider] - Discharge Diet: Advance as tolerated Discharge Activity: Increase activity as tolerated Patient Instructions: Acute Diarrhea (ED), Urinary Tract Infection in Older Adults (ED) Activity Restrictions/Additional Instructions: Please come back if you have any worsening abdominal pain, fever or chills, nausea or vomiting, diarrhea, blood in the stool, inability hold down liquid or solids, or any new concerning complaints. Come back to the emergency room if your symptoms worsen, have any shortness of breath, fever/chills, dehydration, inability tolerate food or drinks, any difficulty breathing, or any new or concerning complaints. Please take your antibiotics for your UTI. Please take probiotics with the antibiotics. Come back if you have any flank pain, nausea/vomiting, vomiting, o r any new concerning complaints. 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
[2022-03-15 12:56] VITALS: PULSE 62; RESP 21; O2SAT 98
[2022-03-15 13:56] VITALS: PULSE 58; O2SAT 98
[2022-03-15 14:03] LABS: Basophils % 0.6 %; Eosinophils % 0.5 %; Hematocrit 40.6 % (37.0-47.0); Hemoglobin 13.5 g/dL (11.5-15.3); Lymphocytes # 2.3 10^3/uL (0.8-4.8); Lymphocytes % 35.8 %; Mean Corpuscular HGB Conc 33.3 g/dL (30.0-36.0); Mean Corpuscular Volume 93.3 fl (81-99); Mean Platelet Volume 11.7 fL (7.4-10.4); Monocytes # 0.5 10^3/uL (0.2-0.9); Monocytes % 7.1 %; Neutrophils # 3.56 10^3/uL (1.8-7.7); Neutrophils % 55.8 %; Nucleated Red Blood Cells % 0 %; Platelet Count 175 10^3/cmm (130-400); Red Blood Count 4.35 10^6/uL (4.1-5.3); Red Cell Distribution Width 12.1 % (12.1-15.1); White Blood Count 6.4 10^3/uL (4.0-10.0)
[2022-03-15] MEDS: sodium chloride 0.9% 1,000 ML 999 ML IV (14:18)
[2022-03-15] MEDS: ondansetron 2 mg/ML SDV 2 mL 4 MG IVP (14:19)
[2022-03-15 14:30] LABS: Alanine Aminotransferase 11 U/L (0-33); Alkaline Phosphatase 78 IU/L (35-105); Anion Gap 18.6 (5-19); Aspartate Amino Transferase 17 U/L (0-32); Blood Urea Nitrogen 28 mg/dL (8-23); Calcium 9.1 mg/dL (8.5-10.5); Carbon Dioxide 19 mmol/L (22-29); Chloride 102 mmol/L (98-107); Globulin 3.2 g/dL (1.3-4.6); Glucose 90 mg/dL (65-115); Lipase 32 U/L (13-60); Magnesium 2.3 mg/dL (1.7-2.3); Osmolality Calculated 287 mOsm/kg (285-295); Potassium 3.6 mmol/L (3.5-5.1); Sodium 136 mmol/L (136-145); Total Protein 7.2 g/dL (6.6-8.7)
--- NOTE | 2022-03-15 14:34 | ECG_ITS ---
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 Measurements Intervals Welling Rate: 58 P: 56 HI: 149 QRS: 26 QRSD: 87 T: 30 QT: 425 QTc: 418 Interpretive Statements SINUS BRADYCARDIA Compared to ECG 03/15/2022 13:04:23 Sinus rhythm no longer present Electronically Signed On 03-15-2022 15:25:40 CDT by Jay Jay Dacosta M.D. [id number]
[2022-03-15 14:35] LABS: Troponin(5th) Baseline 7 ng/L (0-10)
[2022-03-15 14:42] LABS: Add Urine Microscopic? YES; Bilirubin Urine 1+ (Negative); Blood Urine 2+ (Negative); Glucose Urine UA Norm (Normal); Ketones Urine 1+ (Negative); Leukocyte Esterase Urine 2+ (Negative); Nitrate Urine Positive (Negative); Protein Urine Neg (Negative); Specific Gravity, Urine 1.025 (1.005-1.030); Urine Color Amber (Yellow); Urobilinogen Urine Norm (Negative); pH Urine 5 (5-7)
[2022-03-15 15:00] VITALS: PULSE 58; O2SAT 99
[2022-03-15 15:00] LABS: Add Urine Culture? Yes; Bacteria Urine 3+ /hpf; RBC Urine 0-4 /hpf (0-2); Squamous Epithelial Cell Urine 0-4 /hpf (0-5); WBC Urine 25-40 /hpf (0-5)
--- NOTE | 2022-03-15 15:10 | PC.NURSE ---
EKG done at 1450 and shown to ER doctor
[2022-03-15 16:00] VITALS: BP 141/74; PULSE 61; O2SAT 97
[2022-03-15 17:08] VITALS: BP 141/74; PULSE 62; O2SAT 98
== END 2022-03-15 16:50 | disposition home or self-care (01) ==
PROVIDERS: Emergency Provider Emergency Medicine; PCP Nurse Practitioner Family
DX: N39.0 Urinary tract infection, site not specified (principal); R19.7 Diarrhea, unspecified; R11.0 Nausea; R05.9 Cough, unspecified; I10 Essential (primary) hypertension
CPT/HCPCS: 71045; 80053; 81001; 83690; 83735; 84484; 85025; 87077; 87086; 87186; 93005; 96361; 96374; 99285; J2405; J7030

== ENCOUNTER → 2023-04-29 13:18 | Outpatient (BNVA) | payer MEDICARE, OTHER, SELFPAY | PROVIDERS: PCP Nurse Practitioner; Visit Provider Nurse Practitioner | DX: I10 Essential (primary) hypertension (principal); R39.9 Unspecified symptoms and signs involving the genitourinary system; R41.3 Other amnesia | CPT/HCPCS: 80053; 81000 ==

== ENCOUNTER → 2023-08-26 10:51 | Outpatient (BNVA) | payer MEDICARE, OTHER, SELFPAY | PROVIDERS: PCP Nurse Practitioner; Visit Provider Nurse Practitioner Family | DX: E55.9 Vitamin D deficiency, unspecified (principal); F41.9 Anxiety disorder, unspecified; I10 Essential (primary) hypertension; E78.2 Mixed hyperlipidemia; D64.9 Anemia, unspecified; Z79.899 Other long term (current) drug therapy; R31.9 Hematuria, unspecified; N39.0 Urinary tract infection, site not specified; Z01.89 Encounter for other specified special examinations | CPT/HCPCS: 80053; 80061; 81003; 82306; 82607; 82746; 83036; 83550; 84443; 85025; 87077; 87086; 87184 ==

== ENCOUNTER → 2023-09-04 11:31 | Outpatient (BNVA) | payer MEDICARE, OTHER, SELFPAY | PROVIDERS: PCP Nurse Practitioner; Visit Provider Nurse Practitioner Family | DX: N39.0 Urinary tract infection, site not specified (principal); D51.8 Other vitamin B12 deficiency anemias; E87.6 Hypokalemia | CPT/HCPCS: 81003; 82607; 87077; 87086; 87184 ==

== ENCOUNTER → 2023-09-25 16:24 | Outpatient (BNVA) | payer MEDICARE, OTHER, SELFPAY | PROVIDERS: PCP Nurse Practitioner; Visit Provider Nurse Practitioner Family | DX: D51.8 Other vitamin B12 deficiency anemias (principal); N39.0 Urinary tract infection, site not specified | CPT/HCPCS: 81003 ==

== ENCOUNTER → 2023-10-14 13:27 | Outpatient (BNVA) | payer MEDICARE, OTHER, SELFPAY | PROVIDERS: PCP Nurse Practitioner; Visit Provider Nurse Practitioner Family | DX: N39.0 Urinary tract infection, site not specified (principal); D51.8 Other vitamin B12 deficiency anemias | CPT/HCPCS: 81000; 82607; 87086 ==

== ENCOUNTER → 2024-01-10 11:56 | Outpatient (BNVA) | payer MEDICARE, OTHER, SELFPAY | PROVIDERS: PCP Nurse Practitioner Family; Visit Provider Nurse Practitioner Family | DX: E55.9 Vitamin D deficiency, unspecified (principal); I10 Essential (primary) hypertension; K21.9 Gastro-esophageal reflux disease without esophagitis; J06.9 Acute upper respiratory infection, unspecified; D51.8 Other vitamin B12 deficiency anemias; D64.9 Anemia, unspecified; E78.2 Mixed hyperlipidemia; Z79.899 Other long term (current) drug therapy; F41.9 Anxiety disorder, unspecified; F32.9 Major depressive disorder, single episode, unspecified | CPT/HCPCS: 80053; 80061; 81003; 82306; 82607; 82728; 83036; 84443; 85025; 87077; 87086; 87184 ==

== ENCOUNTER 2024-04-16 15:01 | Observation (INO) | payer MEDICARE, OTHER, SELFPAY ==
[2024-04-16 15:09] VITALS: BP 121/78; PULSE 73; RESP 18; TEMP 36.6; O2SAT 97
--- NOTE | 2024-04-16 15:11 | ECG_ITS ---
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 Measurements Intervals Caroline Rate: 71 P: 64 UT: 158 QRS: 59 QRSD: 81 T: 65 QT: 372 QTc: 406 Interpretive Statements SINUS RHYTHM LOW QRS VOLTAGE IN PRECORDIAL LEADS [QRS DEFLECTION < 1.0 mV IN CHEST LEADS] Compared to ECG 03/15/2022 14:47:40 Low QRS voltage now present Sinus bradycardia no longer present Electronically Signed On 04-16-2024 23:24:36 CDT by Chinyere Hughes M.D. [id number]
[2024-04-16 15:35] VITALS: BP 131/74; PULSE 69; O2SAT 99
--- NOTE | 2024-04-16 15:50 | ED_ITS ---
HPI - Dizziness 2 General: Chief Complaint: Dizziness Stated Complaint: dizzy Time Seen by Provider: 04/16/24 15:29 Source: patient and family Mode of arrival: ambulatory Limitations: no limitations History of Present Illness: HPI Narrative: This patient came to the emergency department today accompanied by her son. She is experiencing same symptoms of lightheadedness and generalized weakness that she is experienced in the past. That was attributed to a low potassium level at that time. She denies vertigo. She specifically denies headache focal weakness difficulty with speech difficulty with ambulation other than the generalized weakness that contributes to her decreased energy. She denies any recent falls. She states she has been faithful to her prescribed medications. She denies any nausea vomiting or diarrhea. Son does relate that they have recently lost their father and she is been somewhat depressed related regarding that event. No chest pain shortness of breath cough sore throat etc. No known history of cardiovascular disease. No current palpitations etc. Son relates that she has had issues with Jasper dehydration in the past and he wonders if that might be an issue although again she has been drinking fluids and not had any fluid loss such as might be expected from repetitive vomiting loose stools etc. MD elicited complaint: lightheadedness History of similar symptoms: Yes Associated symptoms: Denies chest pain, headache(s), nausea, nasal congestion, palpitations, syncope or vomiting Associated neuro symptoms: Deny numbness in extremities Review of Systems 2 Const: Denies: fever(s) Eyes: Denies: change in vision ENMT: Denies: throat pain, odynophagia, nasal discharge or nasal congestion Card: Denies: chest pain, palpitations, irregular heart rhythm, syncope or pre-syncope GI: Denies: abdominal pain, nausea, vomiting, diarrhea, hematochezia or melena : Denies: flank pain, difficulty voiding, dysuria, urinary frequency, urinary urgency or urinary hesitancy Musc: Denies: neck pain, back pain, extremity pain or extremity swelling Neuro: Denies: headache(s), numbness in extremities, weakness in extremities, frequent falls, dizziness, vertigo or Slurred speech present Psych: Reports: anxiety and depression; Denies: suicidal ideation or homicidal ideation PFSH ED 2 PFSH: Medical History Chronic UTI Yeast UTI Acute UTI URI (upper respiratory infection) Encounter for laboratory test Dog bite of upper extremity Anxiety Influenza vaccine needed Anemia Malnutrition Anxiety and depression Vitamin B12 deficiency (dietary) anemia Mixed hyperlipidemia Vitamin D deficiency Vertebral artery disease Tremor History of pulmonary embolism Memory change H/O pneumothorax GERD (gastroesophageal reflux disease) Essential hypertension H/O deep venous thrombosis Anterolisthesis Cervical stenosis of spine Chest heaviness Surgical History S/P hysterectomy Family History Brother CAD (coronary artery disease) FH: CABG (coronary artery bypass surgery) Father Stroke Mother Alzheimers disease Other Diabetes Social History Smoking and tobacco/nicotine status: never used tobacco/nicotine Alcohol intake: never Substance/Drug Use: never Physical Exam 2 Narrative: EXAM NARRATIVE: Makes good eye contact she answers questions appropriately in a goal-directed fashion. Somewhat flat affect but again normal speech Const: COMMON NORMALS: no acute distress, patient oriented x3 and alert G ENERAL APPEARANCE: cooperative and comfortable NUTRITIONAL APPEARANCE: o verweight HENMT: COMMON NORMALS: normocephalic, atraumatic, EAC's normal, TM's normal bilaterally, Normal nasal mucous membranes and turbinates present and moist oral mucous membranes HEAD & SCALP: normocephalic and atraumatic FACE & SINUS: normal facial exam and face symmetric NOSE: Normal nasal mucous membranes and turbinates present EXTERNAL AUDITORY CANAL: EAC's normal TYMPANIC MEMBRANE: TM's normal bilaterally Eye: COMMON NORMALS: Equal, round and reactive pupils present, EOMs intact bilaterally and conjunctivae normal CONJUNCTIVA: Yes conjunctivae normal P UPIL: Yes Equal, round and reactive pupils present OTHER: No nystagmus at rest Neck/C-Spine: COMMON NORMALS: full ROM, no JVD and No carotid bruits Resp: COMMON NORMALS: normal respiratory effort, No retractions, No use of accessory muscles and clear to auscultation bilaterally AUSCULTATION: clear to auscultation bilaterally Cardio: COMMON NORMALS: no JVD, regular rate, regular rhythm, No murmurs present (Cardio) and Peripheral pulses 2+ throughout RATE: regular rate R HYTHM: regular rhythm PERIPHERAL PULSES: Peripheral pulses 2+ throughout GI: COMMON NORMALS: Normal to inspection, nondistended, normoactive bowel sounds present and Soft to palpation PALPATION: Yes Soft to palpation : COMMON NORMALS: Yes no CVA tenderness BLADDER/KIDNEY EXAM: Yes no CVA tenderness Back/Pelvis: COMMON NORMALS: no CVA tenderness, thoracic and lumbar spine normal to inspection, no thoracic nor lumbar tenderness, thoraco-lumbar ROM normal and straight leg raise negative bilaterally Extremity: COMMON NORMALS: normal to inspection, full ROM, capillary refill normal, no calf tenderness and no pedal edema Neuro: COMMON NORMALS: patient oriented x3, moves all extremities, no focal motor deficits, no sensory deficits noted and gait normal S ENSORIUM/ORIENTATION: Yes alert COORDINATION/BALANCE: [id number] test normal and [id number]-[id number] test normal COORDINATION: [id number]-[id number] test normal and eint-rr-lcqf test normal Psych: COMMON NORMALS: speech normal ATTITUDE: Yes calm SPEECH: Yes normal speech MOOD & AFFECT: Yes depressed mood THOUGHT CONTENT: Yes Normal thought content present Skin: COMMON NORMALS: no rashes or lesions noted, no wounds and turgor normal GENERAL SKIN EXAM: no rashes or lesions noted and turgor normal Course 2 Reevaluation(s): Reevaluation #1: After IV fluids patient subjectively states she feels much better. Will going to get up and ambulate her about the emergency department and see how she feels with activity. Time: 18:16 Reevaluation #2: Patient when stood up and allowed to attempt to ambulate she is very ataxic and cannot ambulate without assistance. Further examination revealed that she did have some provoked giving of her vertigo with head positioning but she is somewhat difficult to discern from her responses whether she is having continuous vertigo or intermittent. Her INH is 0 at this time but this does not test for posterior circulation. Her initial presentation did not suggest vertigo or ataxia when doing the intake more lightheadedness. However given the current findings I think we have to do more evaluation to discern whether she has a posterior circulation issue. Discussed with Dr. Atkins consulting neurologist. Will go ahead and proceed with a CTA at this time and then plan on putting her in observation for a MRI in the morning. Time: 18:45 Reevaluation #3: CTA is still pending at the time of the signing of this chart. Consultations: Consultation #1: Discussed with Dr. Atkins who concurs and recommends a CTA now and placing in observation for MRI in the morning. Time: 18:48 Consultation #2: Discussed with Dr. Carl who will admit Vital Signs: Vital signs: Vital Signs Temperature 97.9 F 04/16/24 15:09 Pulse Rate 64 04/16/24 18:38 Respiratory Rate 18 04/16/24 15:09 Blood Pressure 156/83 04/16/24 18:38 Pulse Oximetry 100 04/16/24 18:38 Oxygen Delivery Me thod Room Air 04/16/24 18:38 MDM - Dizziness Medical Decision Making Based upon the initial HPI and initial intake the patient primarily was having episodes of light headedness and general weakness and did not describe any vertiginous symptoms or gait disturbance etc. Workup was initiated based upon this initial evaluation and history. Differential at that time included electrolyte disturbance, volume depletion, arrhythmia. The patient was notable for normal chemistries no evidence of arrhythmia on the monitor and received IV fluids which subjectively improved her in terms of when she was lying in bed. Additional evaluation was performed which included allowing her to get up and ambulate unaided which she could not do without significant ataxia and required assistance to ambulate. Further testing revealed vertigo that could be provoked but there was no associated nystagmus and it was impossible to discern whether this was central or peripheral in nature. Her NIH was 0 but obviously this does not discern for posterior circulation issues. Neurology was consulted and because of the inability to get MRI at this facility at this time a day we proceed with CTA head and neck and placing observation and will continue further evaluation with neurologic consultation as well. Lab Data I reviewed the patient's lab results. 04/16/24 15:51 04/16/24 15:51 Laboratory Results WBC 6.39 10^3/uL (3.29-11.43) 04/16/24 15:51 RBC 4.01 10^6/uL (3.85-5.65) 04/16/24 15:51 Hgb 12.80 g/dL (11.27-16.99) 04/16/24 15:51 Hct 38.1 % (36-47) 04/16/24 15:51 MCV 95.0 fl (85-98) 04/16/24 15:51 MCH 31.9 pg (27-33) 04/16/24 15:51 MCHC 33.6 g/dL (30-55) 04/16/24 15:51 RDW 12.5 % (12.1-15.1) 04/16/24 15:51 Plt Count 159 10^3/cmm (157-399) 04/16/24 15:51 MPV 11.9 fL (7.4-10.4) H 04/16/24 15:51 Neut % (Auto) 67.1 % 04/16/24 15:51 Lymph % (Auto) 24.7 % 04/16/24 15:51 Sequoyah % (Auto) 5.8 % 04/16/24 15:51 Eos % (Auto) 1.4 % 04/16/24 15:51 Baso % (Auto) 0.5 % 04/16/24 15:51 Neut # (Auto) 4.29 10^3/uL (1.8-7.7) 04/16/24 15:51 Lymph # (Auto) 1.6 10^3/uL (0.8-4.8) 04/16/24 15:51 Sequoyah # (Auto) 0.4 10^3/uL (0.2-0.9) 04/16/24 15:51 Eos # (Auto) 0.1 10^3/uL (0.0-0.8) 04/16/24 15:51 Baso # (Auto) 0.0 10^3/uL (0.0-0.1) 04/16/24 15:51 Nucleated RBC % (auto) 0 % 04/16/24 15:51 Nucleated RBCs # 0.0 /100WBC 04/16/24 15:51 PT 14.10 SECONDS (12.1-14.9) 04/16/24 15:51 INR 1.06 (0.8-1.2) 04/16/24 15:51 APTT 27.6 SECONDS (23.9-36.7) 04/16/24 15:51 Sodium 140 mmol/L (136-145) 04/16/24 15:51 Potassium 3.8 mmol/L (3.5-5.1) 04/16/24 15:51 Chloride 109 mmol/L (98-107) H 04/16/24 15:51 Carbon Dioxide 20 mmol/L (22-29) L 04/16/24 15:51 Anion Gap 14.8 (5-19) 04/16/24 15:51 BUN 24 mg/dL (8-23) H 04/16/24 15:51 Creatinine 0.9 mg/dL (0.5-0.9) 04/16/24 15:51 GFR Calculation Not Reportable 04/16/24 15:51 Glucose 142 mg/dL (65-115) H 04/16/24 15:51 Calculated Osmolality 296 mOsm/kg (285-295) H 04/16/24 15:51 Calcium 8.7 mg/dL (8.5-10.5) 04/16/24 15:51 Magnesium 1.9 mg/dL (1.7-2.3) 04/16/24 15:51 Total Bilirubin 0.9 mg/dL (0.15-1.2) 04/16/24 15:51 AST 13 U/L (0-32) 04/16/24 15:51 ALT 6 U/L (0-33) 04/16/24 15:51 Alkaline Phosphatase 87 U/L (35-105) 04/16/24 15:51 Total Protein 6.5 g/dL (6.6-8.7) L 04/16/24 15:51 Albumin 3.9 g/dL (3.5-5.2) 04/16/24 15:51 Globulin 2.6 g/dL (1.3-4.6) 04/16/24 15:51 TSH 1.27 uIU/mL (0.27-4.20) 04/16/24 15:51 All radiology interpretation(s) finalized by discharge EKG Data EKG 1: I personally reviewed and interpreted this EKG as follows: Interpretation: Contemporaneous review of resting EKG reveals a ventricular rate of 71 bpm. Normal ID interval, QRS duration, corrected QT interval. Normal axis. No acute ST-T wave changes noted. No arrhythmias noted. Discharge Plan Discharge Patient Disposition: Placed in Observation Admit Provider: Cherrie Beasley Clinical Impression: Vertigo Coding Level of Care Code ED Bunch Maker Hand for g Giuliana
[2024-04-16 15:57] LABS: Basophils % 0.5 %; Eosinophils # 0.1 10^3/uL (0.0-0.8); Eosinophils % 1.4 %; Hematocrit 38.1 % (36-47); Lymphocytes # 1.6 10^3/uL (0.8-4.8); Lymphocytes % 24.7 %; Mean Corpuscular HGB Conc 33.6 g/dL (30-55); Mean Corpuscular Hemoglobin 31.9 pg (27-33); Mean Platelet Volume 11.9 fL (7.4-10.4); Monocytes # 0.4 10^3/uL (0.2-0.9); Monocytes % 5.8 %; Neutrophils # 4.29 10^3/uL (1.8-7.7); Neutrophils % 67.1 %; Nucleated Red Blood Cells % 0 %; Platelet Count 159 10^3/cmm (157-399); Red Blood Count 4.01 10^6/uL (3.85-5.65); Red Cell Distribution Width 12.5 % (12.1-15.1); White Blood Count 6.39 10^3/uL (3.29-11.43)
[2024-04-16 16:22] LABS: Alanine Aminotransferase 6 U/L (0-33); Albumin Level 3.9 g/dL (3.5-5.2); Alkaline Phosphatase 87 U/L (35-105); Anion Gap 14.8 (5-19); Aspartate Amino Transferase 13 U/L (0-32); Blood Urea Nitrogen 24 mg/dL (8-23); Calcium 8.7 mg/dL (8.5-10.5); Carbon Dioxide 20 mmol/L (22-29); Chloride 109 mmol/L (98-107); Creatinine Clr Calc Pharmacy 59.1749; Globulin 2.6 g/dL (1.3-4.6); Glucose 142 mg/dL (65-115); Magnesium 1.9 mg/dL (1.7-2.3); Osmolality Calculated 296 mOsm/kg (285-295); Potassium 3.8 mmol/L (3.5-5.1); Sodium 140 mmol/L (136-145); Total Bilirubin 0.9 mg/dL (0.15-1.2); Total Protein 6.5 g/dL (6.6-8.7)
[2024-04-16] MEDS: lactated ringers 1,000 ML 999 ML IV (16:42)
[2024-04-16 16:51] LABS: Thyroid Stimulating Hormone 1.27 uIU/mL (0.27-4.20)
[2024-04-16 18:38] VITALS: BP 156/83; PULSE 64; O2SAT 100
--- NOTE | 2024-04-16 18:45 | CTR_ITS ---
PROCEDURE INFORMATION: Exam: CTA Head With Contrast, Arteriography Exam date and time: 04/16/2024 8:07 PM Age: 73 years old Clinical indication: Dizziness and giddiness; Additional info: Posterior circulation concern TECHNIQUE: Imaging protocol: Computed tomographic angiography of the head with contrast. Exam focused on the arteries. 3D rendering (Not supervised by radiologist): MIP and/or 3D reconstructed images were created by the technologist. Radiation optimization: All CT scans at this facility use at least one of these dose optimization techniques: automated exposure control; mA and/or kV adjustment per patient size (includes targeted exams where dose is matched to clinical indication); or iterative reconstruction. Contrast material: OMNI 350; Contrast volume: 100 ml; Contrast route: INTRAVENOUS (IV); COMPARISON: No relevant prior studies available. RADIATION DOSE METRICS: Total DLP (mGy-cm): 1055 FINDINGS: ANTERIOR CIRCULATION: Right internal carotid artery: Mild calcified plaque with minimal luminal irregularity however no significant focal stenosis. Intracranial segment is patent with no significant stenosis. No aneurysm. Right middle cerebral artery: No occlusion or significant stenosis. No aneurysm. Right anterior cerebral artery: No occlusion or significant stenosis. No aneurysm. Left internal carotid artery: Mild calcified plaque with minimal luminal irregularity however no significant focal stenosis. Intracranial segment is patent with no significant stenosis. No aneurysm. Left middle cerebral artery: No occlusion or significant stenosis. No aneurysm. Left anterior cerebral artery: No occlusion or significant stenosis. No aneurysm. POSTERIOR CIRCULATION: Right vertebral artery: No occlusion or significant stenosis. No aneurysm. Left vertebral artery: No occlusion or significant stenosis. No aneurysm. Basilar artery: No occlusion or significant stenosis. No aneurysm. Right posterior cerebral artery: No occlusion or significant stenosis. No aneurysm. Left posterior cerebral artery: Normal variant origin. No occlusion or significant stenosis. No aneurysm. Brain: There is mild diffuse cerebral atrophy present, consistent with this patient's age. Cerebral ventricles: No ventriculomegaly. Bones/joints: There are degenerative changes in the visualized spine. Broad-based disc osteophyte complexes are present across the C5-C6 and C6-C7 levels indenting the anterior thecal sac and resulting in bilateral neural foraminal narrowing. Soft tissues: Unremarkable. PROCEDURE INFORMATION: Exam: CTA Neck With Contrast Exam date and time: 04/16/2024 8:07 PM Age: 73 years old Clinical indication: Dizziness and giddiness; Additional info: Posterior circulation concern TECHNIQUE: Imaging protocol: Computed tomographic angiography of the neck with contrast. Exam focused on the cervical segments of the vasculature. 3D rendering (Not supervised by radiologist): MIP and/or 3D reconstructed images were created by the technologist. Radiation optimization: All CT scans at this facility use at least one of these dose optimization techniques: automated exposure control; mA and/or kV adjustment per patient size (includes targeted exams where dose is matched to clinical indication); or iterative reconstruction. Contrast material: OMNI 350; Contrast volume: 100 ml; Contrast route: INTRAVENOUS (IV); COMPARISON: CR XR chest 1V portable [id number] 03/15/2022 12:39 PM RADIATION DOSE METRICS: Total DLP (mGy-cm): 1055 FINDINGS: Right common carotid artery: No stenosis. No dissection or occlusion. Right internal carotid artery: No stenosis of the extracranial segment. No dissection or occlusion. Right external carotid artery: No occlusion or stenosis of the origin. Left common carotid artery: Calcified plaque in the distal left common carotid artery results in a short segment of mild stenosis. No dissection or occlusion. Left internal carotid artery: There is calcified plaque in the proximal left internal carotid artery without significant stenosis. Left external carotid artery: No occlusion or stenosis of the origin. Right vertebral artery: No stenosis. No dissection or occlusion. Left vertebral artery: No stenosis. No dissection or occlusion. Soft tissues: Normal. No significant soft tissue swelling. Bones/joints: No stenosis of the extracranial segment. No dissection or occlusion. CT/CT angio headneck* [id number] IMPRESSION: No stenosis or occlusion. No aneurysm. IMPRESSION: Calcified plaque in the distal left common carotid artery results in a short segment of mild stenosis. No dissection or occlusion. REFERENCES: NASCET CRITERIA. The degree of stenosis in the cervical segment of the internal carotid artery is based on NASCET criteria. Normal is no stenosis. Mild is less than 50% stenosis. Moderate is 50-69% stenosis. Severe is 70% to 99% stenosis. Total occlusion is no detectable patent lumen.
[2024-04-16 19:06] LABS: INR 1.06 (0.8-1.2)
[2024-04-16 19:07] LABS: Partial Thromboplastin Time 27.6 SECONDS (23.9-36.7)
[2024-04-16] MEDS: diazePAM 2 mg Tablet PO (19:07)
--- NOTE | 2024-04-16 20:27 | P.HP_ITS ---
Providers/Chief Complaint 2 Admitting Physician: Cherrie Beasley MD Primary Care Provider: JEAN-PAUL Lord Chief Complaint: dizzy History of Present Illness Rosemarie De Los Satnos is a 73 year old female who is presenting with chief complaint worsening of ataxia and presyncopal event. Patient lives with her son, patient is stating that last time she was diagnosed with hypokalemia when she developed worsening of her presyncopal event and dizziness. This time she had similar concerns decided to come to the hospital. In the ER she is not hypokalemic. Family is at the bedside providing us in the information because patient is forgetful she has B12 related dementia, patient potassium 3.8, no significant abnormalities in CBC or BMP, ER physician spoke with neurologist Dr. Atkins who recommended MRI head patient is denying hearing deficit, tinnitus, falls, headaches. Patient is stating that her symptoms get worse with sudden change of head position. No nausea vomiting or fluctuation of blood pressure. Her symptoms are chronic which have gotten worse in last few days CT head and neck was requested, IV line got infiltrated She is complaining of pain in her left arm Review of Systems 2 Const: Denies: fever(s) Eyes: Denies: change in vision ENMT: Denies: throat pain Card: Denies: chest pain Resp: Denies: dyspnea GI: Denies: abdominal pain : Denies: flank pain Musc: Reports: back pain Skin/Breast: Denies: rash Neuro: Reports: dizziness and vertigo Medications/Allergies Home Medications Medication Instructions Recorded Confirmed Last Taken Type ascorbic acid (vitamin C) 500 mg 500 mg PO DAILY 03/15/22 01/10/24 03/15/22 History tablet (Vitamin C) ferrous gluconate 324 mg (37.5 mg 324 mg PO DAILY 30 days #30 tabs 08/31/22 01/10/24 Unknown Rx iron) tablet vitamin-ferrous fumarate 1 cap PO DAILY 30 days #30 caps 08/31/22 01/10/24 Unknown Rx 65 mg iron-folic acid 1 mg capsule ibuprofen 600 mg tablet 600 mg PO DAILY PRN pain #90 tabs 11/27/22 01/10/24 Unknown Rx potassium chloride 20 mEq/15 mL 20 meq (15 mL) PO DAILY 30 days 12/13/23 01/10/24 Unknown Rx oral liquid #450 mL cyanocobalamin (vitamin B-12) 1,000 mcg SUBCUT .weekly 4 weeks 01/08/24 01/10/24 Unknown Rx 1,000 mcg/mL injection kit #4 ea atorvastatin 40 mg tablet (Lipitor) 40 mg PO DAILY #90 tabs 01/10/24 01/10/24 Unknown Rx cholecalciferol (vitamin D3) 1,250 50,000 unit PO .weekly 90 days #12 01/10/24 01/10/24 Unknown Rx mcg (50,000 unit) capsule caps lisinopril 5 mg tablet 5 mg PO DAILY #90 tabs 01/10/24 01/10/24 Unknown Rx omeprazole 40 mg capsule,delayed 40 mg PO DAILY #90 caps 01/10/24 01/10/24 Unknown Rx release paroxetine HCl 20 mg tablet (Paxil) 20 mg PO DAILY #90 tabs 01/10/24 01/10/24 Unknown Rx promethazine-DM 6.25 mg-15 mg/5 mL 5 ml PO Q6H 10 days #200 mL 01/10/24 01/10/24 Unknown Rx oral syrup tolterodine 4 mg capsule,extended 4 mg PO DAILY #90 caps 01/10/24 01/10/24 Unknown Rx release 24 hr (Detrol LA) levofloxacin 500 mg tablet 500 mg PO DAILY 5 days #5 tabs 02/28/24 Unknown Rx Allergies Allergy/AdvReac Type Severity Reaction Status Date / Time gabapentin Allergy ADR-Drowsy Verified 01/10/24 11:32 PFSH Acute 2 PFSH: Medical History Chronic UTI Yeast UTI Acute UTI URI (upper respiratory infection) Encounter for laboratory test Dog bite of upper extremity Anxiety Influenza vaccine needed Anemia Malnutrition Anxiety and depression Vitamin B12 deficiency (dietary) anemia Mixed hyperlipidemia Vitamin D deficiency Vertebral artery disease Tremor History of pulmonary embolism Memory change H/O pneumothorax GERD (gastroesophageal reflux disease) Essential hypertension H/O deep venous thrombosis Anterolisthesis Cervical stenosis of spine Chest heaviness Surgical History S/P hysterectomy Family History Brother CAD (coronary artery disease) FH: CABG (coronary artery bypass surgery) Father Stroke Mother Alzheimers disease Other Diabetes Social History Smoking and tobacco/nicotine status: never used tobacco/nicotine Alcohol intake: never Substance/Drug Use: never Vitals/I&O/Wt Last Vital Signs Temp 97.9 F 04/16/24 15:09 Pulse 64 04/16/24 18:38 Resp 18 04/16/24 15:09 BP 156/83 04/16/24 18:38 Pulse Ox 100 04/16/24 18:38 O2 Del Method Room Air 04/16/24 18:38 04/16/24 04/16/24 04/16/24 06:59 14:59 22:59 Intake Total 1000 / 1000 Balance 1000 / 1000 Weight last 48 hrs Weight 79.379 kg Physical Exam 2 Narrative: Awake and alert NIH 0 GCS 15 Pleasant cough Well-built Euvolemic NIH 0 GCS 15 hemodynamically stable currently on room air Family at the bedside Patient seems to have poor attention span and forgetful S1, S2 No audible stridor or wheezing Data 04/16/24 15:51 04/16/24 15:51 A&P Assessment and plan (1) Anxiety and depression: (2) Vitamin D deficiency: (3) Vertigo: (4) Vitamin B12 deficiency (dietary) anemia: (5) Ataxia: Plan Presyncope Dizziness is chronic in nature with acute worsening My concern is related to vertigo since patient is endorsing worsening of symptoms with sudden head position change She is not endorsing any signs of hearing deficit, tinnitus, headaches, low suspicion for acoustic neuroma, M?ni?re's disease is a possibility considering chronic symptoms but she is not endorsing any tinnitus or significant hearing deficit, I would like to rule out BPPV will request physical therapy for Holton- Hallpike maneuver, avoid meclizine The symptoms are chronic in nature, will request head MRI CTA head and neck was done by the ER physician, awaiting report Continue B12 therapy Potassium not extremely low to consider periodic hypokalemic paralysis B12 related dementia Patient is full code Cardiac diet DVT prophylaxis heparin Attestations 2 Medical Necessity Statement*: Anticipating discharge within 48 hours Diagnoses Anxiety and depression F41.9; F32.9 Vitamin D deficiency E55.9 Vertigo R42 Vitamin B12 deficiency (dietary) anemia D51.8 Ataxia R27.0
[2024-04-16] MEDS: iohexol 350 mg/mL 500 mL Btl (per mL) IV (20:30)
[2024-04-16 21:20] VITALS: BP 156/83; PULSE 64; RESP 18; TEMP 36.6; O2SAT 100
[2024-04-16 21:24] LABS: D Dimer 1.51 ug/mLFEU (0-0.59)
[2024-04-16 21:36] VITALS: BMI 31.1
[2024-04-16 21:46] VITALS: BP 134/85; PULSE 59; RESP 18; TEMP 36.5; O2SAT 100
[2024-04-16] MEDS: heparin 5,000 unit/mL INJ 1 mL 5000 UNIT SUBCUT (22:04)
[2024-04-17] VITALS (8 sets, daily range): BP systolic 110–129; BP diastolic 63–76; PULSE 59–81; RESP 16–20; TEMP 36.4–36.8; O2SAT 96–98
[2024-04-17 00:21] LABS: Vitamin B12 244 pg/mL (232-1245)
[2024-04-17 06:00] LABS: Magnesium 1.9 mg/dL (1.7-2.3); Phosphorus 2.8 mg/dL (2.5-4.5)
--- NOTE | 2024-04-17 07:00 | MR_ITS ---
WS: [id number] MRI HEAD WITHOUT CONTRAST TECHNIQUE: Sagittal T1, T2 axial, T2 axial FLAIR, axial and coronal T1 images, axial susceptibility w eighted imaging, axial diffusion weighted images, and coronal T2 images were obtained. CLINICAL INFORMATION: dizzy COMPARISON: CTA 04/16/2024 FINDINGS: No evidence of restricted diffusion to suggest acute ischemia. Ventricular system and basal cisterns are patent. Mild small vessel changes. Moderate parenchymal volume loss. A few tiny chronic lacunar i nfarcts in the cerebellum. Normal vascular flow voids at the skull base. No extra-axial fluid collect ions. No evidence of mass or mass effect. Paranasal sinuses are well aerated. Mild mucosal thickening in the mastoid air cells. Normal posterio r nasopharynx. No hemosiderin on the susceptibly weighted images. Moderate to advanced symmetric atro phy temporal lobes and hippocampal formations. Normal optic chiasm and pituitary infundibulum. MR/MR head wo con* [id number] IMPRESSION: 1. No evidence of restricted diffusion to suggest acute ischemia. 2. Mild small vessel changes with moderate parenchymal volume loss. 3. Moderate to advanced symmetric atrophy temporal lobes and hippocampal forma tions. 4. A few tiny chronic lacunar infarcts in the cerebellum. 5. Slight mucosal thickening in the mastoid air cells.
--- NOTE | 2024-04-17 09:10 | P.CONIM_ITS ---
Providers/Reason For Consult 2 Consulting Physician/Specialty*: Yong Atkins MD neurology and epilepsy Reason for Consult*: Dizziness and near syncope Attending Physician: Paresh Moreno MD Primary Care Provider: JEAN-PAUL Lord History of Present Illness History of Present Illness Rosemarie De Los Santos is a 74 year old female with a history of episodic dizziness and near syncope and weakness for proxy 6 months. According to the family on 04/16/2024 the patient woke up complaining of severe dizziness and disorientation and a sensation that she might pass out. The family stated that the patient also complained of generalized weakness and felt like she was about to . The patient's reports the patient has had episodic episodes of dizziness for the past 6 months but during some of the patient dizzy episodes her potassium was low. Patient was reported to take her potassium and her family brought her to the [facility] emergency room on 04/16/2024. Patient continues to report dizziness in the emergency room with ataxia and therefore CT angiogram of the head and neck were obtained on 04/16/2024 and were reported to be unrevealing. CBC and CMP performed on 04/16/2024 were unrevealing with normal serum potassium of 3.8. D-dimer was slightly elevated at 1.51 (normal equals 0-0.59). In view of the patient's complaints she was admitted for evaluation. Physical therapy consult was obtained as well as neurology consult. On 04/17/2024 the patient reported that she woke up without any dizziness but since undergoing the head MRI she has been experiencing more lightheadedness/dizziness and a sensation that she might pass out. She denied objective or subjective vertigo. The patient also denied chest pain, shortness of breath, palpitations or ear pain. The family also stated that the patient has been experiencing memory loss for the past year. They reported that the patient's symptoms have progressed in severity since the patient's approximately 1 year ago in 2022. The patient's was experiencing Parkinson disease as well as dementia. The patient's family is concerned that the patient may be experiencing dementia since the patient has a family history of dementia and the patient's mother, father, and 2 sisters. Head MRI without contrast 04/17/2024: IMPRESSION: 1. No evidence of restricted diffusion to suggest acute ischemia. 2. Mild small vessel changes with moderate parenchymal volume loss. 3. 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 4. A few tiny chronic lacunar infarcts in the cerebellum. 5. Slight mucosal thickening in the mastoid air cells. Drug allergies: Gabapentin which resulted in severe sedation and drowsiness Current medications: Vitamin C 500 mg p.o. daily Lipitor 40 mg p.o. q. evening Vitamin D3 50,000 international units p.o. weekly B12 1000 mcg subcutaneously every month Ferrous gluconate 324 mg p.o. daily Lisinopril 5 mg p.o. daily Omeprazole 40 mg p.o. daily Paxil 20 mg p.o. daily Potassium chloride 20 mEq p.o. daily vitamin with ferrous fumarate 65 mg/folic acid 1 mg 1 capsule p.o. daily Phenergan 6.25 mg / 15 mg per 5 mL 5 mL p.o. every 6 hours as needed Tolterodine ER 4 mg p.o. daily Past medical history: B12 deficiency (patient on B12 replacement) Vitamin D deficiency (patient on vitamin D replacement) Iron deficiency anemia (patient on iron supplement) Dizziness with near syncope Chronic urinary tract infections Hypokalemia (patient on potassium replacement) Pneumothorax requiring chest tube placement 25 years ago History of nicotine dependence in the past patient quit smoking 30 years ago Memory loss Bilateral cataract surgery Past medications: Gabapentin which resulted in severe sedation Habits: The patient smoked heavily for 30 years but quit 30 years ago. There is no history of any other drug use Family history: Remarkable for a mother, father, and 2 sisters with dementia Social history: Patient lives with family and her puppy Review of Systems 2 General: Reports: 10 or more systems reviewed and unremarkable except in HPI and below Medications/Allergies Home Medications Medication Instructions Recorded Confirmed Last Taken Type ascorbic acid (vitamin C) 500 mg 500 mg PO DAILY 03/15/22 04/16/24 1 Day Ago History tablet (Vitamin C) ~04/15/24 ferrous gluconate 324 mg (37.5 mg 324 mg PO DAILY 30 days #30 tabs 08/31/22 04/17/24 Unknown Rx iron) tablet vitamin-ferrous fumarate 1 cap PO DAILY 30 days #30 caps 08/31/22 04/16/24 1 Day Ago Rx 65 mg iron-folic acid 1 mg capsule ~04/15/24 potassium chloride 20 mEq/15 mL 20 meq (15 mL) PO DAILY 30 days 12/13/23 04/17/24 Unknown Rx oral liquid #450 mL cyanocobalamin (vitamin B-12) 1,000 mcg SUBCUT .weekly 4 weeks 01/08/24 04/16/24 1 Day Ago Rx 1,000 mcg/mL injection kit #4 ea ~04/15/24 atorvastatin 40 mg tablet (Lipitor) 40 mg PO DAILY #90 tabs 01/10/24 04/16/24 1 Day Ago Rx ~04/15/24 cholecalciferol (vitamin D3) 1,250 50,000 unit PO .weekly 90 days #12 01/10/24 04/16/24 1 Day Ago Rx mcg (50,000 unit) capsule caps ~04/15/24 lisinopril 5 mg tablet 5 mg PO DAILY #90 tabs 01/10/24 04/16/24 1 Day Ago Rx ~04/15/24 omeprazole 40 mg capsule,delayed 40 mg PO DAILY #90 caps 01/10/24 04/16/24 1 Day Ago Rx release ~04/15/24 paroxetine HCl 20 mg tablet (Paxil) 20 mg PO DAILY #90 tabs 01/10/24 04/17/24 Unknown Rx promethazine-DM 6.25 mg-15 mg/5 mL 5 ml PO Q6H 10 days #200 mL 01/10/24 04/17/24 Unknown Rx oral syrup tolterodine 4 mg capsule,extended 4 mg PO DAILY #90 caps 01/10/24 04/16/24 1 Day Ago Rx release 24 hr (Detrol LA) ~04/15/24 Allergies Allergy/AdvReac Type Severity Reaction Status Date / Time gabapentin Allergy ADR-Drowsy Verified 01/10/24 11:32 Current Medications Generic Name Dose Route Start Last Admin Trade Name Freq PRN Reason Stop Dose Admin Heparin Sodium (Porcine) 5,000 unit 04/16/24 21:31 04/16/24 22:04 Heparin 5,000 Unit/Ml Inj 1 Ml SUBCUT 5,000 unit Q12H WILMER Administration PFSH Acute 2 PFSH: Medical History Chronic UTI Yeast UTI Acute UTI URI (upper respiratory infection) Encounter for laboratory test Dog bite of upper extremity Anxiety Influenza vaccine needed Anemia Malnutrition Anxiety and depression Vitamin B12 deficiency (dietary) anemia Mixed hyperlipidemia Vitamin D deficiency Vertebral artery disease Tremor History of pulmonary embolism Memory change H/O pneumothorax GERD (gastroesophageal reflux disease) Essential hypertension H/O deep venous thrombosis Anterolisthesis Cervical stenosis of spine Chest heaviness Surgical History S/P hysterectomy Family History Brother CAD (coronary artery disease) FH: CABG (coronary artery bypass surgery) Father Stroke Mother Alzheimers disease Other Diabetes Social History Smoking and tobacco/nicotine status: never used tobacco/nicotine Alcohol intake: never Substance/Drug Use: never Vitals/I&O/Wt Last Vital Signs Temp 97.6 F 04/17/24 04:49 Pulse 67 04/17/24 04:49 Resp 18 04/17/24 04:49 BP 125/75 04/17/24 04:49 Pulse Ox 98 04/17/24 04:49 O2 Del Method Room Air 04/17/24 02:00 04/16/24 04/17/24 04/17/24 22:59 06:59 14:59 Intake Total 1000 / 1000 100 / 1100 Balance 1000 / 1000 100 / 1100 Weight last 48 hrs Weight 188 lb 4.8 oz Weight 187 lb Weight 175 lb Physical Exam 2 Narrative: Blood pressure 125/75 heart rate 67 respiration 18 temperature 97.6 O2 saturation 98% on room air The patient is alert and oriented to person and place and situation. She thought the year was 2004. Patient did not know the month or the day of the week or the today's date. Patient became somewhat anxious with continued questioning and therefore the questioning was discontinued. The patient is able to follow commands. Head atraumatic. Neck supple. Cranial nerves II through XII intact. Pupils 3 to 4 mm round reactive to light and accommodation. Patient does have signs of bilateral cataract surgery. There were no nystagmus on extraocular movements. And patient denied any dizziness during extraocular movement testing. Motor testing 5/5 bilaterally. Deep tendon reflexes 1-2+ bilaterally. Plantar responses flexor bilaterally. There was no clonus. Sensory examination was intact to touch. Gait was not tested secondary to complaints of dizziness when attempting to ambulate. Extremities were negative for clubbing cyanosis or edema. Data 04/16/24 15:51 04/16/24 15:51 A&P Assessment and plan (1) Dizziness: Impression: 1. Dizziness associated with near syncope for 6 months but worse since 04/16/2024 2. Near syncope for 6 months 3. Memory loss with reports of moderate to advanced temporal lobe and hippocampal atrophy on head MRI without contrast 04/17/2024 4. B12 deficiency (patient on subcutaneously B12 replacement) 5. Vitamin D deficiency (patient on vitamin D replacement) 6. Iron deficiency anemia (patient on iron supplement) 7. Essential hypertension 8. Anxiety Plan: 1. Patient stable from neurological standpoint for discharge planning 2. Please schedule patient for follow-up in the [facility] neurology clinic in 1 to 2 weeks 3. Will plan to complete the patient's memory loss and near syncope workup on an outpatient basis 4. Recommend ENT evaluation to assess for interval ear abnormalities. This can be performed on an outpatient basis 5. Continue fall precautions 6. Will schedule routine surface EEG recording on follow-up clinic visit 7. Will schedule outpatient labs for APOE, FTA antibody, RPR, thyroid profile, NANCY, RA, sedimentation rate, C-reactive protein, magnesium, serum protein electrophoresis, and immunofixation on follow-up clinic visit 8. Note: Family reports patient has no history of tick bites. 9. Recommend outpatient cardiac evaluation to assess for any underlying arrhythmias although the patient denied chest pain or palpitations (2) Near syncope: (3) Memory loss: Consult Attestations 2 Medical Necessity Statement: The patient was evaluated by neurology for dizziness with near syncope and memory loss Coding Level of Care Code 93390 Diagnoses Dizziness R42 Near syncope R55 Memory loss R41.3
[2024-04-17] MEDS: atorvastatin 40 mg Tablet PO (09:16)
[2024-04-17] MEDS: potassium chloride ER 20 mEq Tablet PO (09:16)
[2024-04-17] MEDS: heparin 5,000 unit/mL INJ 1 mL 5000 UNIT SUBCUT (09:16)
[2024-04-17] MEDS: magnesium oxide 400 mg tablet PO (09:16)
--- NOTE | 2024-04-17 11:53 | PC.CHAP ---
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 [] Patient/Family/Request visit [] Outpatient visit [] Follow-up visit [] Physician referral [] Code/Alert [X] Routine visit [] Staff referral [] Actively dying [] Patient sleeping [] Family support [] [] Out of room [X] Palliative care [] [] Receiving care in room [] Pre-surgical visit [] Trauma [] Long length of stay [] ICU visit [] Other: Relational/Emotional Strength [] Patient feels connected with others/family/visitors/staff [] Distress [] Loneliness/isolation [] Abandonment Spirituality of Patient [] Person of Sandhya [] Attends Jain of their Sandhya [] Believes in Prayer [] Reads Bible or Druze materials [] There are Spiritual issues to be addressed Apprentice Interventions [] Prayer [] Active listening [] Non-anxious presence [] Spiritual/emotional support [] Crisis/trauma care [] Spiritual counseling [] Bereavement support [] Provided bereavement packet [] Provided Bible/devotional materials [] Provided toy/stuffed animal, coloring book to patient or family member [] Provided Communion [] Anointing/Dierks [] Salvation [] Completed spiritual assessment [] Other: Impact on Illness or Injury [] Angry [] Fearful [] Anxious [] Often cries [] Exhaustion [] Unable to work [] Unable to attend lutheran [] Unable to walk/stand [] Unable to read [] Unable to drive [] Unable to eat/drink [] Unable to sleep [] Unable to be with family [] Patient intubated [] Other: Summary Staff X2 Time spent with patient
--- NOTE | 2024-04-17 12:02 | XRR_ITS ---
PROCEDURE INFORMATION: Exam: XR Chest Exam date and time: 04/17/2024 1:10 PM Age: 74 years old Clinical indication: Shortness of breath; Patient HX: Dizzy; Additional info: SOB TECHNIQUE: Imaging protocol: Radiologic exam of the chest. Views: 1 view. COMPARISON: CR XR chest 1V portable [id number] 03/15/2022 12:39 PM FINDINGS: Lungs: No consolidation. Pleural spaces: No pleural effusion. No pneumothorax. Heart/Mediastinum: No cardiomegaly. Bones/joints: No acute findings. XR/XR chest 1V portable [id number] IMPRESSION: No acute findings.
[2024-04-17 12:31] LABS: Erythrocyte Sedimentation Rate < 1 mm/hr (0-15)
--- NOTE | 2024-04-17 12:35 | ECG_ITS ---
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 Measurements Intervals [place] Rate: 69 P: 39 ID: 170 QRS: 6 QRSD: 86 T: 21 QT: 383 QTc: 411 Interpretive Statements SINUS RHYTHM LOW QRS VOLTAGE IN PRECORDIAL LEADS [QRS DEFLECTION < 1.0 mV IN CHEST LEADS] Compared to ECG 04/16/2024 15:11:39 No significant changes Electronically Signed On 04-17-2024 13:18:07 CDT by Chinyere Hughes M.D. [id number]
[2024-04-17 12:42] LABS: Ferritin 29 ng/mL (15-150); Iron 62 ug/dL (37-145); Percent Saturation 23.1 % (20-50); Total Iron Binding Capacity 268 mcg/dl; Unsaturated Iron Binding 206 ug/dL (112-347)
[2024-04-17 12:49] LABS: Procalcitonin 0.05 ng/mL (0-0.5)
[2024-04-17 13:31] LABS: Troponin(5th) Baseline 7 ng/L (0-10)
--- NOTE | 2024-04-17 14:04 | ECG_ITS ---
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 Measurements Intervals [place] Rate: 68 P: 47 NH: 169 QRS: 19 QRSD: 78 T: 31 QT: 389 QTc: 415 Interpretive Statements SINUS RHYTHM LOW QRS VOLTAGE IN PRECORDIAL LEADS [QRS DEFLECTION < 1.0 mV IN CHEST LEADS] Compared to ECG 04/17/2024 12:35:52 No significant changes Electronically Signed On 04-17-2024 20:02:26 CDT by Chinyere Hughes M.D. [id number]
[2024-04-17 14:41] LABS: Add Urine Microscopic? YES; Bilirubin Urine Neg (Negative); Blood Urine Neg (Negative); Glucose Urine UA Norm (Normal); Ketones Urine Negative (Negative); Leukocyte Esterase Urine Trace (Negative); Nitrate Urine Negative (Negative); Protein Urine Neg (Negative); Urine Appearance Clear (CLEAR); Urine Color Yellow (Yellow); Urobilinogen Urine Neg (Negative); pH Urine 5 (5-7)
[2024-04-17 14:42] LABS: RBC Urine 0-4 /hpf (0-2)
[2024-04-17 14:43] LABS: Add Urine Culture? No; Bacteria Urine 1+ /hpf; Mucus Urine 1+ /hpf
--- NOTE | 2024-04-17 15:41 | P.DS_ITS ---
Discharge Providers Date of Admission: 04/16/24 20:01 Date of Discharge: April 17, 2024 Attending Provider at Admission: Cherrie Beasley MD Attending Provider at Discharge: Paresh Moreno MD Primary Care Provider: JEAN-PAUL Lord Diagnoses at Discharge Discharge Diagnosis (1) Dizziness: Status: Acute (2) Near syncope: Status: Acute (3) Memory loss: Status: Acute Reason for Visit Reason for Visit: dizzy Hospital Course Hospital Course Rosemarie De Los Santos is a 73 year old female who is presenting with chief complaint worsening of ataxia and presyncopal event. Patient lives with her son, patient is stating that last time she was diagnosed with hypokalemia when she developed worsening of her presyncopal event and dizziness. This time she had similar concerns decided to come to the hospital. In the ER she is not hypokalemic. Family is at the bedside providing us in the information because patient is forgetful she has B12 related dementia, patient potassium 3.8, no significant abnormalities in CBC or BMP, ER physician spoke with neurologist Dr. Atkins who recommended MRI head patient is denying hearing deficit, tinnitus, falls, headaches. Patient is stating that her symptoms get worse with sudden change of head position. No nausea vomiting or fluctuation of blood pressure. Her symptoms are chronic which have gotten worse in last few days CT head and neck was requested, IV line got infiltrated She is complaining of pain in her left arm Patient was admitted to [facility] for concerns for ataxia, presyncopal event, dizziness, imaging as below MR/MR head wo con* [id number] IMPRESSION: 1. No evidence of restricted diffusion to suggest acute ischemia. 2. Mild small vessel changes with moderate parenchymal volume loss. 3. 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 4. A few tiny chronic lacunar infarcts in the cerebellum. 5. Slight mucosal thickening in the mastoid air cells CTA head and neck CT/CT angio headneck* [id number] IMPRESSION: No stenosis or occlusion. No aneurysm. IMPRESSION: Calcified plaque in the distal left common carotid artery results in a short segment of mild stenosis. No dissection or occlusion. ? Cardiology was consulted ? On examination no focal neurologic deficits, no significant ataxia on exam, ambulating without significant symptomatology, no orthostatic hypotension -She was found to have a UTI and certainly this could be playing a role ? Nonetheless currently relatively asymptomatic, discharged on aspirin, statin, with close follow-up with neurology as outpatient, patient was advised if she were to have any recurrent strokelike symptoms to go to the emergency room ? Of note, her MRI of above she did show chronic lacunar infarcts in the cerebellum, timeframe unknown, and also does show moderate's advanced metric atrophy of the temporal lobes and hippocampal formations, no history of A-fib, certainly this could be playing a role in terms of her unsteadiness at times, nonetheless discharged on aspirin, statin, with close follow-up with neurology -As for her dizziness, some component likely related to UTI, orthostatics negative, no significant arrhythmias during her hospitalization, if patient's dizziness persists as outpatient, I have made an appoint with cardiology in 2 to 4 weeks consider event monitor ? I think that a significant component of patient's dizziness, presyncopal symptoms, ataxia is related to severe depression and anxiety, and anxiety attacks -Denies suicidal ideation, denies homicidal ideation ? Patient and family have had extensive discussion with me, Rosemarie watched her from Parkinson's disease, they tells me that it was a vicious disease to watch, to watch her and slowly from this disease, she had to deal with it on a daily basis, since her 's passing, she has been dealing with severe depression, she denies any suicidal ideation, or homicidal ideation, but she tells me that she is plagued with these ruminating thoughts of her , she tells me that typically what will happen is she will be washing her dishes, and she will get these thoughts about her , what he went through, and because of the severe ruminating thoughts, she will suddenly feel lightheaded, she will feel dizzy, she will feel like everything is going to end, she will feel like she will , and then will start to feel dizzy, unsteady on her feet, will feel like she will pass out, she tells me that she also does not like to go out much because of this, she interacts with other people less, she does not talk to people about this or any family members about this, so the thoughts tend to ruminate, and she feels more depressed and anxious about it, it is interfering with her functioning ? She is supposed to be taking Paxil, but has not been taking it ? I had a detailed discussion with her about her depression, her anxiety episodes, they are interfering with her functioning and now they are having what I believed to have physical manifestations -I would recommend her to continue her Paxil once daily ? Because she has a severe anxiety episodes, episodes of when she feels that she is going to pass out, because of these ruminating thoughts, I prescribed her a very low-dose of Xanax to be used as needed, we discussed the addictive potential of Xanax, side effects including dizziness and lightheadedness, however in her situation as her anxiety attacks are affecting her functioning, and she is gone through significant traumatic and life altering events, I think that the benefits outweigh the risk, so I have advised her that if she were to have these episodes happen she should go and sit down and take a half a dose of the Xanax to see if that will help with her symptomatology. If it does and the side effects are minimal I think that Xanax would be a good option for her in the short-term ? In the long-term I think cognitive behavioral therapy, speaking to a counselor long-term will help her significantly I am going to see if [facility] [place] can see her ? Nonetheless follow-up with primary care provider -If she were to have any suicidal or homicidal ideation to go to emergency room -She also reports dizziness when changing head position, this could be benign positional vertigo, she was seen by physical therapy, we have gone over the Rose maneuver before her, if she has these episodes of vertigo that happen when changing head position she should try the Rose maneuver, Physical Exam Const: COMMON NORMALS: no acute distress and patient oriented x3 Resp: COMMON NORMALS: normal respiratory effort, No retractions, No use of accessory muscles and clear to auscultation bilaterally AUSCULTATION: clear to auscultation bilaterally Cardio: COMMON NORMALS: regular rate, regular rhythm, S1 normal heart sound present and S2 normal heart sound present RATE: regular rate RHYTHM: regular rhythm HEART SOUNDS: S1 normal heart sound present and S2 normal heart sound present GI: COMMON NORMALS: Normal to inspection, nondistended, normoactive bowel sounds present and non-tender Extremity: COMMON NORMALS: no pedal edema Neuro: COMMON NORMALS: patient oriented x3, CN's II-XII intact bilaterally, moves all extremities and no focal motor deficits Psych: COMMON NORMALS: mental status grossly normal Discharge Data Studies Completed and Pending Completed Studies During Hospitalization Category Date Time Status CTA head neck [CT angio headneck* [id number]] Stat Cat Scan 04/16/24 18:45 Completed XR chest 1V portable [id number] Routine Exams 04/17/24 12:02 Completed MR head wo con* [id number] Routine MRI 04/17/24 07:00 Completed Pending at discharge Category Date Time Status Troponin(5th) 6 hour. Timed Lab 04/17/24 19:06 Ordered CV. echo complete* [id number] Routine Ultrasound 04/17/24 12:04 Ordered Radiology Impressions Head/Neck CTA 04/16/24 18:45 IMPRESSION: No stenosis or occlusion. No aneurysm. IMPRESSION: Calcified plaque in the distal left common carotid artery results in a short segment of mild stenosis. No dissection or occlusion. REFERENCES: NASCET CRITERIA. The degree of stenosis in the cervical segment of the internal carotid artery is based on NASCET criteria. Normal is no stenosis. Mild is less than 50% stenosis. Moderate is 50-69% stenosis. Severe is 70% to 99% stenosis. Total occlusion is no detectable patent lumen. Head MRI 04/17/24 07:00 IMPRESSION: 1. No evidence of restricted diffusion to suggest acute ischemia. 2. Mild small vessel changes with moderate parenchymal volume loss. 3. 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 4. A few tiny chronic lacunar infarcts in the cerebellum. 5. Slight mucosal thickening in the mastoid air cells. Chest X-Ray 04/17/24 12:02 IMPRESSION: No acute findings. Laboratory Results WBC 6.39 10^3/uL (3.29-11.43) 04/16/24 15:51 RBC 4.01 10^6/uL (3.85-5.65) 04/16/24 15:51 Hgb 12.80 g/dL (11.27-16.99) 04/16/24 15:51 Hct 38.1 % (36-47) 04/16/24 15:51 MCV 95.0 fl (85-98) 04/16/24 15:51 MCH 31.9 pg (27-33) 04/16/24 15:51 MCHC 33.6 g/dL (30-55) 04/16/24 15:51 RDW 12.5 % (12.1-15.1) 04/16/24 15:51 Plt Count 159 10^3/cmm (157-399) 04/16/24 15:51 MPV 11.9 fL (7.4-10.4) H 04/16/24 15:51 Neut % (Auto) 67.1 % 04/16/24 15:51 Lymph % (Auto) 24.7 % 04/16/24 15:51 [place] % (Auto) 5.8 % 04/16/24 15:51 Eos % (Auto) 1.4 % 04/16/24 15:51 Baso % (Auto) 0.5 % 04/16/24 15:51 Neut # (Auto) 4.29 10^3/uL (1.8-7.7) 04/16/24 15:51 Lymph # (Auto) 1.6 10^3/uL (0.8-4.8) 04/16/24 15:51 [place] # (Auto) 0.4 10^3/uL (0.2-0.9) 04/16/24 15:51 Eos # (Auto) 0.1 10^3/uL (0.0-0.8) 04/16/24 15:51 Baso # (Auto) 0.0 10^3/uL (0.0-0.1) 04/16/24 15:51 Nucleated RBC % (auto) 0 % 04/16/24 15:51 Nucleated RBCs # 0.0 /100WBC 04/16/24 15:51 ESR < 1 mm/hr (0-15) 04/17/24 05:18 PT 14.10 SECONDS (12.1-14.9) 04/16/24 15:51 INR 1.06 (0.8-1.2) 04/16/24 15:51 APTT 27.6 SECONDS (23.9-36.7) 04/16/24 15:51 D-Dimer 1.51 ug/mLFEU (0-0.59) H 04/16/24 21:00 Sodium 140 mmol/L (136-145) 04/16/24 15:51 Potassium 3.8 mmol/L (3.5-5.1) 04/16/24 15:51 Chloride 109 mmol/L (98-107) H 04/16/24 15:51 Carbon Dioxide 20 mmol/L (22-29) L 04/16/24 15:51 Anion Gap 14.8 (5-19) 04/16/24 15:51 BUN 24 mg/dL (8-23) H 04/16/24 15:51 Creatinine 0.9 mg/dL (0.5-0.9) 04/16/24 15:51 GFR Calculation Not Reportable 04/16/24 15:51 Glucose 142 mg/dL (65-115) H 04/16/24 15:51 Calculated Osmolality 296 mOsm/kg (285-295) H 04/16/24 15:51 Calcium 8.7 mg/dL (8.5-10.5) 04/16/24 15:51 Phosphorus 2.8 mg/dL (2.5-4.5) 04/17/24 05:18 Magnesium 1.9 mg/dL (1.7-2.3) 04/17/24 05:18 Iron 62 ug/dL (37-145) 04/17/24 05:18 Iron Cancelled 04/17/24 05:18 TIBC 268 mcg/dl 04/17/24 05:18 % Saturation 23.1 % (20-50) 04/17/24 05:18 Unsat Iron Binding 206 ug/dL (112-347) 04/17/24 05:18 Ferritin 29 ng/mL (15-150) 04/17/24 05:18 Total Bilirubin 0.9 mg/dL (0.15-1.2) 04/16/24 15:51 AST 13 U/L (0-32) 04/16/24 15:51 ALT 6 U/L (0-33) 04/16/24 15:51 Alkaline Phosphatase 87 U/L (35-105) 04/16/24 15:51 Troponin T Baseline 7 ng/L (0-10) 04/17/24 13:06 Troponin T 120 Minute 7.90 ng/L (0-10) 04/17/24 15:05 Delta Troponin T 0.90 ABS# (0-10) 04/17/24 15:05 C-Reactive Protein 3.0 mg/L (0.0-4.9) 04/17/24 05:18 Total Protein 6.5 g/dL (6.6-8.7) L 04/16/24 15:51 Albumin 3.9 g/dL (3.5-5.2) 04/16/24 15:51 Globulin 2.6 g/dL (1.3-4.6) 04/16/24 15:51 Vitamin B12 244 pg/mL (232-1245) 04/16/24 15:51 Procalcitonin 0.05 ng/mL (0-0.5) 04/17/24 05:18 TSH 1.27 uIU/mL (0.27-4.20) 04/16/24 15:51 Urine Color Yellow (Yellow) 04/17/24 14:00 Urine Appearance Clear (CLEAR) 04/17/24 14:00 Urine pH 5 (5-7) 04/17/24 14:00 Ur Specific [place] 1.020 (1.005-1.030) 04/17/24 14:00 Urine Protein Neg (Negative) 04/17/24 14:00 Urine Glucose (UA) Norm (Normal) 04/17/24 14:00 Urine Ketones Negative (Negative) 04/17/24 14:00 Urine Blood Neg (Negative) 04/17/24 14:00 Urine Nitrate Negative (Negative) 04/17/24 14:00 Urine Bilirubin Neg (Negative) 04/17/24 14:00 Urine Urobilinogen Neg mg/dL (Negative) 04/17/24 14:00 Ur Leukocyte Esterase Trace (Negative) H 04/17/24 14:00 Urine RBC 0-4 /hpf (0-2) H 04/17/24 14:00 Urine WBC 10-15 /hpf (0-5) H 04/17/24 14:00 Ur Squamous Epith Cells 5-10 /hpf (0-5) H 04/17/24 14:00 Amorphous Sediment Not Reportable 04/17/24 14:00 Urine Bacteria 1+ /hpf (NONE) H 04/17/24 14:00 Urine Mucus 1+ /hpf 04/17/24 14:00 Vitals Last Vital Signs Temp 97.8 F 04/17/24 11:47 Pulse 72 04/17/24 12:05 Resp 20 H 04/17/24 11:47 BP 118/63 04/17/24 12:05 Pulse Ox 97 04/17/24 11:47 O2 Del Method Room Air 04/17/24 11:47 Discharge Plan Discharge Patient Disposition: Home Condition: Stable Prescriptions: New Xanax 0.5 mg tablet 0.25 mg PO BID PRN (Reason: anxiety) 7 Days Qty: 7 0RF cefdinir 300 mg capsule 300 mg PO BID 5 Days Qty: 10 0RF aspirin 81 mg capsule 81 mg PO DAILY 30 Days Qty: 30 0RF Continued atorvastatin [Lipitor] 40 mg tablet 40 mg PO DAILY Qty: 90 1RF cholecalciferol (vitamin D3) 1,250 mcg (50,000 unit) capsule 50,000 unit PO .weekly 90 Days Qty: 12 1RF omeprazole 40 mg capsule,delayed release(DR/EC) 40 mg PO DAILY Qty: 90 1RF tolterodine [Detrol LA] 4 mg capsule,extended release 24hr 4 mg PO DAILY Qty: 90 1RF promethazine-DM 6.25-15 mg/5 mL syrup 5 ml PO Q6H 10 Days Qty: 200 0RF ferrous gluconate 324 mg (37.5 mg iron) tablet 324 mg PO DAILY 30 Days Qty: 30 2RF vit-iron fum-folic ac 65 mg iron- 1 mg capsule 1 cap PO DAILY 30 Days Qty: 30 5RF potassium chloride 20 mEq/15 mL liquid 20 meq PO DAILY 30 Days Qty: 450 2RF cyanocobalamin (vitamin B-12) 1,000 mcg/mL kit 1,000 mcg SUBCUT .weekly 28 Days Qty: 4 0RF ascorbic acid (vitamin C) [Vitamin C] 500 mg Tablet 500 mg PO DAILY paroxetine HCl [Paxil] 20 mg tablet 20 mg PO DAILY 30 Days Qty: 30 1RF Discontinued lisinopril 5 mg tablet 5 mg PO DAILY Qty: 90 1RF Discharge Orders: Discharge Order (Routine); Ordered 04/17/24 Ordered By: Paresh Moreno Referrals: Yong Atkins MD [Physician] - 1 week Saul,Achenkunju, MD [Physician] - 1 month RUBÉN Middleton FNP [Primary Care Provider] - 1-3 days Alejandro Amador DO [Staff Physician] - 1 week Discharge Diet: Cardiac Discharge Activity: Resume usual activity Patient Instructions: Dizziness, Alprazolam (By mouth), Aspirin (By mouth), Cefdinir (By mouth), Opioid Safety, Anxiety (DC), Depression (DC) Activity Restrictions/Additional Instructions: - Please use Xanax safely, do not drive or operate her machinery or drink while taking medication ? If you have thoughts of hurting yourself or hurting others please call [phone] -If you have strokelike symptoms please call [phone] Discharge Attestations Time Spent in Discharge Care*: greater than 30 min Quality Metrics Clinical Quality Measures [ No reported AMI, CVA or VTE this stay] Coding Level of Care Code 61479 Total time (in minutes) for Discharge: 45 Diagnoses Dizziness R42 Near syncope R55 Memory loss R41.3
--- NOTE | 2024-04-17 16:16 | PC.OT ---
Pt declines OT evaluation stating I am going home.
== END 2024-04-17 17:11 | disposition home or self-care (01) ==
LOC: ER 18:49 → MEDSURG 20:20
PROVIDERS: Admitting Provider Internal Medicine; Emergency Provider Emergency Medicine; PCP Nurse Practitioner Family; Visit Provider Family Medicine
DX: R42 Dizziness and giddiness (principal); R55 Syncope and collapse; R41.3 Other amnesia; Z87.891 Personal history of nicotine dependence; E78.2 Mixed hyperlipidemia; I10 Essential (primary) hypertension; Z86.718 Personal history of other venous thrombosis and embolism; Z82.49 Family history of ischemic heart disease and other diseases of the circulatory system; F41.9 Anxiety disorder, unspecified; E55.9 Vitamin D deficiency, unspecified
CPT/HCPCS: 36415; 70496; 70498; 70551; 71045; 80053; 81001; 82607; 82728; 83540; 83550; 83735; 84100; 84145; 84443; 84484; 85025; 85378; 85610; 85651; 85730; 86140; 93005; 96372; 97161; 97530; 99285; G0378; J1644; J7120; Q9967

== ENCOUNTER → 2024-04-30 07:20 | Outpatient (BNVA) | payer MEDICARE, OTHER, SELFPAY | PROVIDERS: PCP Nurse Practitioner Family; Visit Provider Psychiatry & Neurology Neurology | DX: R42 Dizziness and giddiness (principal); R55 Syncope and collapse; R41.3 Other amnesia; E53.8 Deficiency of other specified B group vitamins; E55.9 Vitamin D deficiency, unspecified | CPT/HCPCS: 99212 ==

== ENCOUNTER → 2024-05-18 11:27 | Outpatient (BNVA) | payer MEDICARE, OTHER, SELFPAY | PROVIDERS: PCP Nurse Practitioner Family; Visit Provider Internal Medicine Cardiovascular Disease | DX: R55 Syncope and collapse (principal); I95.9 Hypotension, unspecified; Z87.891 Personal history of nicotine dependence | CPT/HCPCS: 99214 ==

== ENCOUNTER → 2024-07-14 09:13 | Outpatient (BNVA) | payer MEDICARE, OTHER, SELFPAY | PROVIDERS: PCP Nurse Practitioner Family; Visit Provider Psychiatry & Neurology Neurology | DX: R55 Syncope and collapse (principal) | CPT/HCPCS: 95816; 95819 ==

== ENCOUNTER → 2024-08-18 14:23 | Outpatient (BNVA) | payer MEDICARE, OTHER, SELFPAY | PROVIDERS: PCP Nurse Practitioner Family; Visit Provider Psychiatry & Neurology Neurology | DX: L72.3 Sebaceous cyst (principal); R41.3 Other amnesia; R55 Syncope and collapse; D51.9 Vitamin B12 deficiency anemia, unspecified; D50.9 Iron deficiency anemia, unspecified; E55.9 Vitamin D deficiency, unspecified; F41.9 Anxiety disorder, unspecified | CPT/HCPCS: 99212; 99213 ==

== ENCOUNTER → 2025-09-09 10:46 | Outpatient (BNVA) | payer MEDICARE, OTHER, SELFPAY | PROVIDERS: PCP Nurse Practitioner Family; Visit Provider Nurse Practitioner Family | DX: E55.9 Vitamin D deficiency, unspecified (principal); I10 Essential (primary) hypertension; D51.8 Other vitamin B12 deficiency anemias; D64.9 Anemia, unspecified; E78.2 Mixed hyperlipidemia; Z79.899 Other long term (current) drug therapy | CPT/HCPCS: 80053; 80061; 81003; 82306; 82607; 82728; 82746; 83036; 83550; 84443; 85025 ==

== ENCOUNTER → 2025-09-28 12:12 | Outpatient (BNVA) | payer MEDICARE, OTHER, SELFPAY | PROVIDERS: PCP Nurse Practitioner Family; Visit Provider Nurse Practitioner Family | DX: I10 Essential (primary) hypertension (principal); E55.9 Vitamin D deficiency, unspecified; D51.8 Other vitamin B12 deficiency anemias; D64.9 Anemia, unspecified; E78.2 Mixed hyperlipidemia; Z79.899 Other long term (current) drug therapy | CPT/HCPCS: 81003; 87086 ==